=== PATIENT | female | born 1970 | race Caucasian/White ===

== ENCOUNTER 2025-07-16 15:24 | Outpatient (AMB) | payer OTHER, SELFPAY ==
--- OUTSIDE RECORDS SUMMARY | 2024-09-26 08:25 | XMS_ITS ---
Author Organization [facility] Address [address], [place] [id number] Care Team Providers Care Grinding Operator Name Role Phone BAIRON WAGNER Primary Care Provider REASON FOR VISIT fax EKG results Encounters Encounter Location Date Provider Diagnosis [facility] [address] [place] [address] 09/26/2024 BAIRON WAGNER PLAN OF TREATMENT No Information
--- OUTSIDE RECORDS SUMMARY | 2024-09-29 03:57 | XMS_ITS ---
Author Organization [facility] Address [address] [place], [place] [id number] Care Team Providers Care Shade Hanger Name Role Phone BAIRON WAGNER Primary Care Provider REASON FOR VISIT fax EKG tracings Encounters Encounter Location Date Provider Diagnosis [facility] [address] [place] [address] 09/29/2024 BAIRON WAGNER PLAN OF TREATMENT No Information
--- OUTSIDE RECORDS SUMMARY | 2024-09-30 03:40 | XMS_ITS ---
Author Organization [facility] Address [address] [place], [place] [id number] Care Team Providers Care Hospice Clinical Marketer Name Role Phone BAIRON WAGNER Primary Care Provider [phone] REASON FOR VISIT fax EKG tracings ALICE Encounters Encounter Location Date Provider Diagnosis [facility] [address] [place] [address] 09/30/2024 BAIRON WAGNER PLAN OF TREATMENT No Information
--- OUTSIDE RECORDS SUMMARY | 2024-12-09 08:02 | XMS_ITS ---
Author Organization [facility] Address [address] [place], [place] [phone] Care Team Providers Care Farm Planner Name Role Phone BAIRON WAGNER Primary Care Provider CIARA MYLES [phone] REASON FOR VISIT Abdominal Surgery Follow Up Encounters Encounter Location Date Provider Diagnosis [facility] [address] [place] [address] 12/09/2024 CIARA MYLES PLAN OF TREATMENT No Information
--- OUTSIDE RECORDS SUMMARY | 2024-12-11 10:40 | XMS_ITS ---
Author Organization [facility] Address [address] [place], [place] [id number] Care Team Providers Care Miner Operator Name Role Phone BAIRON WAGNER Primary Care Provider CIARA MYLES Unavailable [phone] ALLERGIES Allergen (clinical drug ingredient) Drug/Non Drug Allergy documented on EMR Reaction Allergy Type Onset Date Status metronidazole Flagyl red patches on skin Drug Allergy Active Latex Latex sensitivity Allergy Active tetracycline Tetracycline red patches on skin Drug Allergy Active REASON FOR VISIT KP/36/Abdominal Surgery Follow Up MEDICATIONS Medication SIG (Take, Route, Frequency, Duration) Notes Start Date End Date Status valACYclovir HCl 1 GM 1 tab(s) orally 2 times a day prn Active Simethicone 80 MG 1 tablet after meals and at bedtime as needed Orally Four times a day Active Albuterol Sulfate 90 mcg orally orally 2 puffs every 6 hours Active Atorvastatin Calcium 40 MG 1 tablet Oral ly Once a day Active Acetaminophen 325 MG 1 tablet as needed Orally every 6 hrs Active Ibuprofen 600 MG 1 tablet with food o r milk as needed Orally Three times a day Active Gabapentin 300 MG 1 capsule Orally Thr ee times a day Active PROBLEMS Problem Type ICD Code Onset Dates Problem Status W/U Status Risk SNOMED Code Notes Problem 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 [address] [place] [address] 12/11/2024 CIARA PULITO EIN (endometrial intraepithelial neoplasia) N85.02 ; Pruritic rash L28.2 ; Mild intermittent asthma without complication J45.20 and Pure hypercholesterolemia E78.00 ASSESSMENTS Encounter Date Diagnosis Assessment Notes Treatment Notes Treatment Clinical Notes Section Notes 12/11/2024 EIN (endometrial intraepithelial neoplasia) (ICD-10 - N85.02) S/p uncomplicated abdominal hysterectomy and bilat salpingo-oophorec helga. Pathology pending. Pain controlled, patient agrees to start trying to reduce frequency/dose of Tylenol and Ibuprofen as tolerated. Continue light activity as toelrated, no lifting > 10 pounds and nothing per vagina. Follow up with Dr. Sykes next week as scheduled. 12/11/2024 Pruritic rash (ICD-1 0 - L28.2) Rash inconsistent with cellulitis. Patient will continue wearing T-shirt under her abdominal binder, can apply OTC hydrocortisone 1% cream to rash but not on incision sites. , Pt knows to follow up immediately if symptoms worsen, otherwise will follow up if no improvement. 12/11/2024 Mild intermittent asthma without complication (ICD-10 - J45.20) 12/11/2024 Pure hypercholesterolemia (ICD-10 - E78.00) 12/11/2024 Other I am seeing the patient under the supervision of the co-signing physician. The physician was available for consultation at the time of the office visit. Hospital records reviewed PLAN OF TREATMENT Medication Medication Name Sig Start Date Stop Date Notes valACYclovir HCl 1 GM 1 tab(s) orally 2 times a day prn Simethicone 80 MG 1 tablet after meals and at bedtime as needed Orally Four times a day Albuterol Sulfate 90 mcg orally orally 2 puffs every 6 hours Atorvastatin Calcium 40 MG 1 tablet Orally Once a day Acetaminophen 325 MG 1 tablet as needed Orally every 6 hrs Ibuprofen 600 MG 1 tablet with food o r milk as needed Orally Three times a day Gabapentin 300 MG 1 capsule Orally Thr ee times a day Treatment Notes Assessment Notes EIN (endometrial intraepithelial neoplas ia) S/p uncomplicated abdominal hysterectomy and bilat salpingo-oophorectomy. Pathology pending. Pain controlled, patient agrees to start trying to reduce frequency/dose of Tylenol and Ibuprofen as tolerated. Continue light activity as toelrated, no lifting > 10 pounds and nothing per vagina. Follow up with Dr. Sykes next week as scheduled. Pruritic rash Rash inconsistent wi th cellulitis. Patient will continue wearing T-shirt under her abdominal binder, can apply OTC hydrocortisone 1% cream to rash but not on incision sites. , Pt knows to follow up immediately if symptoms worsen, otherwise will follow up if no improvement. Other I am seeing the william ent under the supervision of the co-signing physician. The physician was available for consultation at the time of the office visit. Hospital records reviewed Next Appt Details Follow Up: prn or as schedul ed, Reason: History and Physical Notes * HPI (History of Present Illness) Category Sub-Category Detail Notes Category Not es General 54 yo female pr esents for HFU. She was admitted to [facility] 12/02-12/04/24 for planned laparoscopic converted to open hysterectomy and bilat salpingo-oophorectomy and sentinal lymph node dissection. with Dr. Addis Figueroa. Post-op course was uncomplicated and patient was discharged home on 12/04/24 with Oxycodone 5 mg po q6hrs, gabapentin 300 mg po tid, Tylenol 1000 mg po qid, and Ibuprofen 600 mg po tid for pain control. Today patient states she took Oxycodone at night initially but no longer needed starting 3 days ago. Pain is controlled on Tylenol 1000 mg po q6 hrs, Ibuprofen 600 mg po q6 hrs, and gabapentin 300 mg tid. Patient is scheduled for a post-op with Dr. Figueroa 12/18/24. She has been able to walk up to 45 minutes and complete ADLs without pain. Physical Examination Category Sub-Category Detail Notes Section Note s EXTREMITIES Edema: none CHEST Shape and expansion: normal Breath sounds: clear to auscultatio n Rales: none Wheezes: none rubs no HEART Rhythm: regular Murmurs: none Heart sounds: Normal S1 & S2, no S 3/S4 Rate: regular ABDOMEN Exam shows: + abdominal bind er, large midline incision and 4 small incisions - clean, dry, intact, abdomen soft, + pink erythema surrounding incision sites, + mild swelling at distal aspect of midline incision, no exudate, no significant tenderness, + erythematous papular rash left mid abdomen NEUROLOGICAL Gait: normal Mental status: Alert and oriented t o person, place, time Tremor: none Speech normal GENERAL General Appearance: well nourish ed, well developed, pleasant, comfortable, no apparent distress PSYCHOLOGY Grooming: appropriate Eye contact: normal Mood: pleasant Affect appropriate
--- OUTSIDE RECORDS SUMMARY | 2025-01-29 03:50 | XMS_ITS ---
Author Organization [facility] Address [address] [place], [place] [id number] Care Team Providers Care Mining Professionals Name Role Phone BAIRON WAGNER Primary Care Provider REASON FOR VISIT rash Appt Encounters Encounter Location Date Provider Diagnosis [facility] [address] [place] [address] 01/29/2025 BAIRON WAGNER PLAN OF TREATMENT No Information
--- OUTSIDE RECORDS SUMMARY | 2025-01-29 05:40 | XMS_ITS ---
Author Organization [facility] Address [address] [place], [place] [phone] Care Team Providers Care Field Seismologist Name Role Phone BAIRON WAGNER Primary Care Provider ALLERGIES Allergen (clinical drug ingredient) Drug/Non Drug Allergy documented on EMR Reaction Allergy Type Onset Date Status metronidazole Flagyl red patches on skin Drug Allergy Active Latex Latex sensitivity Allergy Active tetracycline Tetracycline red patches on skin Drug Allergy Active REASON FOR VISIT Small Red, Raised, Itchy Rash MEDICATIONS Medication SIG (Take, Route, Frequency, Duration) Notes Start Date End Date Status Hydrocortisone 1 % 1 application Rectal Twice a day Active Acetaminophen 325 MG 1 tablet as needed Orally every 6 hrs Active Ibuprofen 600 MG 1 tablet with food o r milk as needed Orally Three times a day Active Atorvastatin Calcium 40 MG 1 tablet Oral ly Once a day Active Medrol 4 MG as directed Orally f or 6 days 01/29/2025 Active Albuterol Sulfate 90 mcg orally orally 2 puffs every 6 hours Active valACYclovir HCl 1 GM 1 tab(s) orally 2 times a day prn Active Clobetasol Propionate 0.05 % 1 applicati on Externally Twice a day for 10 day(s) 01/29/2025 Active SOCIAL HISTORY Tobacco Use: Social History Observation Description Date Details (start date - stop date) Never Smoker NA - NA Sex Assigned At : Social History Observation Description Sex Assigned At Unknown Smoking Question Answer Notes Are you a: never smoker VITAL SIGNS Height 55.50 in 01/29/2025 Weight 192.2 lbs 01/29/2025 Blood pressure systolic 137 mm Hg 01/30/20 25 Blood pressure diastolic 83 mm Hg 025 BMI 43.87 kg/m2 01/29/2025 Encounters Encounter Location Date Provider Diagnosis [facility] [address] [place] [address] 01/29/2025 BAIRON WAGNER Contact dermatitis, unspecified contact dermatitis type, unspecified trigger L25.9 ASSESSMENTS Encounter Date Diagnosis Assessment Notes Treatment Notes Treatment Clinical Notes Section Notes 01/29/2025 Contact dermatitis, unspecified contact dermatitis type, unspecified trigger (ICD-10 - L25.9) discuss elastic products with direct contact to skin; advised to contact me if not resolving wiht above tx We discussed allergy consult and she wants to hold on that PLAN OF TREATMENT Medication Medication Name Sig Start Date Stop Date Notes Medrol 4 MG as directed Orally for 6 days 01/29/2025 Clobetasol Propionate 0.05 % 1 applicati on Externally Twice a day for 10 day(s) 01/29/2025 Treatment Notes Assessment Notes Contact dermatitis, unspecif ied contact dermatitis type, unspecified trigger discuss elastic products with direct contact to skin; advised to contact me if not resolving wiht above tx History and Physical Notes * HPI (History of Present Illness) Category Sub-Category Detail Notes Category Not es General rash states prior hx deramtitis rubber gloves and dish gloves . States new sneakers 20 yrs ago. States after surgery abd binder and wore x 10 days post hosp Started rash in the area. Wore shirt over area and helped. Hydrocort cream tried Wore elastic underwear and area under in abd got red. Stopped the spanks elastic underwear. the redness itching continues. Some itching arms. Physical Examination Category Sub-Category Detail Notes Section Note s ABDOMEN Guarding: none Tenderness: none NEUROLOGICAL Gait: normal Mental status: Alert and oriented t o person, place, time Speech normal DERMATOLOGY Skin: patchy moderate erythema rash mid uper abdomen no increased warmth on skin ( my medical supervisor with me, Brittni) GENERAL General Appearance: well nourish ed, no apparent distress, well developed PSYCHOLOGY Grooming: appropriate Eye contact: normal Mood: pleasant Affect appropriate
--- OUTSIDE RECORDS SUMMARY | 2025-07-13 11:06 | XMS_ITS ---
Author Organization [facility] Address [address] [place], [place] [id number] Care Team Providers Care Lead Assistant Manager Name Role Phone BAIRON WAGNER Primary Care Provider REASON FOR VISIT MedRecReqTrs Encounters Encounter Location Date Provider Diagnosis [facility] [address] [place] [address] 07/13/2025 BAIRON WAGNER PLAN OF TREATMENT No Information
--- OUTSIDE RECORDS SUMMARY | 2025-07-14 04:07 | XMS_ITS ---
Author Organization [facility] Address [address] [place], [place] [phone] Care Team Providers Care Assistant Front Office Manager Name Role Phone BAIRON WAGNER Primary Care Provider REASON FOR VISIT MedRecReqPt Encounters Encounter Location Date Provider Diagnosis [facility] [address] [place] [address] 07/14/2025 BAIRON WAGNER PLAN OF TREATMENT No Information
--- OUTSIDE RECORDS SUMMARY | 2025-07-14 05:04 | XMS_ITS ---
Author Organization [facility] Address [address] [place], [place] [phone] Care Team Providers Care Drier Name Role Phone BAIRON WAGNER Primary Care Provider [phone] ALLERGIES Allergen (clinical drug ingredient) Drug/Non Drug Allergy documented on EMR Reaction Allergy Type Onset Date Status metronidazole Flagyl red patches on skin Drug Allergy Active Latex Latex sensitivity Allergy Active tetracycline Tetracycline red patches on skin Drug Allergy Active REASON FOR VISIT 2/ valACYclovir refill MEDICATIONS Medication SIG (Take, Route, Frequency, Duration) Notes Start Date End Date Status valACYclovir HCl 1 GM 1 tab(s) orally tw ice a day x 1 wk , repeat if needed for 14 days Active Atorvastatin Calcium 40 MG TAKE 1 TABLET BY MOUTH EVERY DAY for 90 Active Medrol 4 MG as directed Orally f or 6 days 01/29/2025 Active Acetaminophen 325 MG 1 tablet as needed Orally every 6 hrs Active Hydrocortisone 1 % 1 application Rectal Twice a day Active Clobetasol Propionate 0.05 % 1 applicati on Externally Twice a day for 10 day(s) 01/29/2025 Active Albuterol Sulfate 90 mcg orally orally 2 puffs every 6 hours Active Ibuprofen 600 MG 1 tablet with food o r milk as needed Orally Three times a day Active PROBLEMS Problem Type ICD Code Onset Dates Problem Status W/U Status Risk SNOMED Code Notes Problem 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 Herpes simplex otitis externa ([id number]) Encounters Encounter Location Date Provider Diagnosis [facility] [address] [place] [address] 07/14/2025 BAIRON WAGNER Recurrent vesicular dermatitis due to herpes simplex virus (HSV) B00.1 ASSESSMENTS Encounter Date Diagnosis Assessment Notes Treatment Notes Treatment Clinical Notes Section Notes 07/14/2025 Recurrent vesicular dermatitis due to herpes simplex virus (HSV) (ICD-10 - B00.1) PLAN OF TREATMENT Medication Medication Name Sig Start Date Stop Date Notes valACYclovir HCl 1 GM 1 tab(s) orally tw ice a day x 1 wk , repeat if needed for 14 days
--- NOTE | 2025-07-16 15:30 | A.OFFPC_ITS ---
Vital Signs 07/16/25 15:43 Height 5 ft 6 in Weight 190 lb 6 oz BMI 30.7 BP 116/70 Blood Pressure Location Lt brachial Position Sitting Respiration 15 Pulse 90 Pulse Source Pulse Oximeter Temp 97.8 F Temp Source Temporal Artery Scan Pulse Oximetry (%) 96 Oxygen Delivery Method Room Air Intake Visit Reasons: Est. Care / Referral Intake Note: Geni presents in the office today to establish care. Allergies cat dander (cats) Allergy (Verified 07/16/25 15:37) Rash metronidazole (From Flagyl) Allergy (Verified 07/16/25 15:36) Rash tetracycline Allergy (Verified 07/16/25 15:36) Rash wool Allergy (Verified 07/16/25 15:37) Shortness of Breath latex Adverse Reaction (Intermediate, Verified 07/16/25 15:36) Rash Medication List - Last Reconciled 07/17/25 by FAYE Lyons albuterol sulfate 90 mcg/actuation 2 inhalations inhalation .every 4 hours PRN 30 days atorvastatin (Lipitor) 10 mg PO DAILY calcium carbonate 260 mg PO DAILY cholecalciferol (vitamin D3) 10 mcg PO DAILY vitamin B73-bajuf acid 500-400 mcg 1 tab PO DAILY Tobacco use date assessed: 07/16/25 Dental Screening Dental Screen Date: 07/16/25 Did you have a dental visit in the last 12 months?: Yes Did you have a dental problem in the last 6 months where you did not have access to dental care?: No Was dental information given to patient?: Patient has dentist HPI HPI Comments History of Present Illness Details This is a 55-year-old female with a past medical history of hyperlipidemia presenting to establish care. Her name is alvaro Cancino. Her last physical exam was September of 2024. Hyperlipidemia-Taking Atorvastatin 20 mg daily. She needs a referral to her animal ecologist in [facility]. She goes for skin exams. She has no personal history of skin cancer, but her mother did have skin cancer. She had a normal colonoscopy on 01/04/2021, and it was recommended to repeat this in 10 years. She is going to call [facility] to schedule her mammogram, and she needs the order sent there. 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 Benedict Enrique. s/p hysterectomy November 2024 for precancerous cells and bleeding. No postoperative complications. 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 Currently taking this for and outbreak. She has a history of asthma that is usually allergy induced. She has not required an inhaler for years, but she would like to have 1 on hand in the event of symptoms. Patient was seen by Dr. Balderas for right Achilles tendonitis and treated with physical therapy. It resolved, but the left Achilles tendon has been bothering her now for the last couple of months. She is still walking which is the primary form of exercise, and she does want to lose weight. She would like to go back to physical therapy because she does not want this to get worse. ROS: Constitutional: No fevers or chills Respiratory: No shortness of breath Cardiovascular: No chest pain Musculoskeletal: See HPI Psychiatric: No depression or anxiety. No SI/HI. Physical exam: Constitutional: Alert, in no distress. Neck: Supple, Full range of motion. No lymphadenopathy. No palpable thyroid masses. Respiratory: Clear to auscultation. Cardiovascular: S1 S2 regular. No murmurs. Skin: Mild, erythematous, vesicular rash on the left nares. Musculoskeletal: Swelling and tenderness at the insertion of the left Achilles tendon. No redness or calor. Psychiatric: Normal mood and affect [facility] Medical History (Updated 07/17/25 @ 10:30 by FAYE Lyons) Mild intermittent asthma in adult without complication HSV (herpes simplex virus) infection Left Achilles tendinitis H/O mammogram Achilles tendinitis Hyperlipemia Asthma Surgical History (Updated 07/17/25 @ 10:29 by FAYE Lyons) H/O: hysterectomy H/O colonoscopy Family History (Updated 07/16/25 @ 15:43 by Addis Butcher CMA) Father Hypertension Hyperlipemia Bladder cancer Glioblastoma Mother Hyperlipemia Mantle cell lymphoma Social History (Updated 07/16/25 @ 15:43 by Addis Butcher CMA) Housing: House Alcohol intake: current Patient Tobacco Use Status: Never used Tobacco e-Cigarette/Vaping Use: Never Used Second Hand Smoke Exposure: No service: No Current occupational status: employed 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 1. Little interest or pleasure in doing things: not at all 2. Feeling down, depressed, or hopeless: not at all 3. Trouble falling or staying asleep, or sleeping too much: not at all 4. Feeling tired or having little energy: not at all 5. Poor appetite or overeating: not at all 6. Feeling bad about yourself - or that you are a failure or have let yourself or your family down: not at all 7. Trouble concentrating on things, such as reading the newspaper or watching television: not at all 8. Moving or speaking so slowly that other people could have noticed. Or the opposite - being so fidgety or restless that you have been moving around a lot more than usual: not at all 9. Thoughts that you would be better off or of hurting yourself in some way: not at all Total score: 0 Depression Screening Interpretation: Negative Depression Screening Done: Yes 04794 - PHQ-9 Billing: Yes Source: Developed by Drs. Joshua Beck, Claudia Arriaga, Trip Huggins and colleagues, with an educational negrito from [employer]. Thrive Questionnaire Date Thrive assessed: 07/16/25 I am a: Patient What is your living situation today?: I have a steady place to live Within the past 12 months, did the food you bought not last and you didn't have the money to get more?: Never true Within the past 12 months, did you worry whether your food would run out before you got money to buy more?: Never true Do you have trouble paying for medicines?: No Do you have trouble getting transportation to medical appointments?: No Do you have trouble paying your heating and electricity bill?: No Do you have trouble taking care of your child, family member or friend?: No Do you have trouble with day-to-day activities such as bathing, preparing meals, shopping, managing finances, etc.?: No Are you currently unemployed and looking for a job?: No Are you interested in more education?: No Please select the resources that you would like help with: None Currently or been in a relationship where the following occur: No concerns reported THRIVE Score: 0 AUDIT C Alcohol Use Questionnaire (AUDIT-C) 1. How often do you have a drink containing alcohol?: 2-4 times a month 2. How many drinks containing alcohol do you have on a typical day when you are drinking?: 1 or 2 3. How often do you have six or more drinks on one occasion?: Never Total Score: 2 WILEY-7 AMB Questionnaire WILEY-7 Date WILEY - 7 assessed: 07/16/25 Feeling nervous, anxious, or on edge: 0 = Not at all Not being able to stop or control worryin = Not at all Worrying too much about different things: 0 = Not at all Trouble relaxin = Not at all Being so restless that it is hard to sit still: 0 = Not at all Becoming easily annoyed or irritable: 0 = Not at all Feeling afraid as if something awful might happen: 0 = Not at all Total WILEY-7 score (0-4 normal; 5-9 mild; 10-14 moderate; 15-21 severe): 0 Source: Developed by Drs. Joshua Beck, Claudia Arriaga, Trip Huggins and colleagues, with an educational negrito from [employer]. WILEY-7 Assessment Billing WILEY-7 Assessment Tool: WILEY-7 Assessment 28306 Physical exam (Primary Care) Vital Signs: Last Vital Signs Temp 97.8 F 07/16/25 15:43 Pulse 90 07/16/25 15:43 Resp 15 07/16/25 15:43 BP 116/70 07/16/25 15:43 Pulse Ox 96 07/16/25 15:43 Oxygen Delivery Method Room Air 07/16/25 15:43 BMI result Body Mass Index 30.7 Tobacco/Smoking Status: Tobacco use Status Tobacco use date assessed 07/16/25 07/16/25 15:46 Patient Tobacco Use Status Never used Tobacco 07/16/25 15:46 e-Cigarette/Vaping Use Never Used 07/16/25 15:46 PHQ-9: PHQ-9 Score PHQ-9: Total score 0 07/17/25 10:26 Depression Screening Interpretation: Negative Thrive Assessment: Date of Thrive Assessment Date Thrive assessed 07/16/25 07/16/25 15:31 Currently or been in a relationship where the following occur: No concerns reported Coding Level of Care Code New Pt Level 4 (35054) Complex EM visit Add On G2211 Diagnoses Left Achilles tendinitis M76.62 Pure hypercholesterolemia E78.00 Hyperlipidemia type: pure hypercholesterolemia HSV (herpes simplex virus) infection B00.9 Mild intermittent asthma in adult without complication J45.20 Additional Codes WILEY-7 Assessment Billing - WILEY-7 Assessment Tool: WILEY-7 Assessment 95562 ([id number]) PHQ-9 - 23664 - PHQ-9 Billing: Yes ([id number]) Assessment & Plan Assessment & Plan (1) Left Achilles tendinitis: Code(s): M76.62 - Achilles tendinitis, left leg Category: Medical Plan: Conservative measures reviewed. Referred to physical therapy. (2) Hyperlipemia: Code(s): E78.5 - Hyperlipidemia, unspecified Category: Medical Qualifiers: Hyperlipidemia type: pure hypercholesterolemia Qualified Code(s): E78.00 - Pure hypercholesterolemia, unspecified Plan: Continue efforts at weight loss. Continue atorvastatin 10 mg daily. Check labs prior to physical exam. (3) HSV (herpes simplex virus) infection: Comment: infrequent outbreaks on nose Code(s): B00.9 - Herpesviral infection, unspecified Category: Medical Plan: Valtrex as needed. (4) Mild intermittent asthma in adult without complication: Code(s): J45.20 - Mild intermittent asthma, uncomplicated Category: Medical Plan: Albuterol 2 puffs every 4 hours as needed for coughing, wheezing or shortness of breath. She endorses environmental triggers. She can take Zyrtec 10 mg 1 hour prior to exposure and albuterol 2 puffs 15 minutes prior to exposure. Plan Follow up for a physical exam in about 3 months. Orders: Orders Comprehensive Met. Panel 07/16/25 E78.5 - Hyperlipidemia, unspecified Complete Blood Count no Diff 07/16/25 E78.5 - Hyperlipidemia, unspecified Lipid Panel 07/16/25 E78.5 - Hyperlipidemia, unspecified PT Evaluation and Treatment 07/16/25 M76.62 - Achilles tendinitis, left leg Influenza [id number] Immunization 07/16/25 Z23 - Encounter for immunization Vitamin D 25-OH (D2 and D3) 07/16/25 E78.5 - Hyperlipidemia, unspecified MM screening mammo BI Today Z12.31 - Encounter for screening mammogram for malignant neoplasm of breast Referrals Dermatology Referral Z12.83 - Encounter for screening for malignant neoplasm of skin Medications: New albuterol sulfate 90 mcg/actuation 2 inhalations inhalation .every 4 hours PRN 8.5 grams 0RF shortness of breath or wheezing 30 days Fluarix 2425-6479 (PF) (flu vac ts 2024-(6mos up)-PF) 0.5 mL IM ONCE 0.5 mL 0RF NS Z23 - Encounter for immunization
[2025-07-16 15:43] VITALS: BP 116/70; PULSE 90; RESP 15; TEMP 36.6; O2SAT 96; BMI 30.7
--- OUTSIDE RECORDS SUMMARY | 2025-07-16 18:19 | XMS_ITS | Encounter Summary ---
Author Organization [facility] Address [address] [place] [address] Care Team Providers Care Sheet Fed Printer Name Role Phone Jaxson Tian DO Primary Care Provider [phone] Addis Figueroa MD Unavailable Benedict Enrique MD Unavailable [phone] Encounter Details Date Type Department Care Team (Late st Contact Info) Description 10/10/2024 Scanned Document [facility] Division of Gynecologic Oncology in [address] [phone] [address] Social History Tobacco Use Types Packs/Day Years Used Date Smoking Tobacco: Never Smokeless Tobacco: Never Alcohol Use Standard Drinks/Week Comments Yes 1 (1 standard drink = 0.6 oz pur e alcohol) AUDIT-C Answer Date Recorded Q1: How often do you have a drink containing alc ohol? 2-4 times a month 09/22/2024 Q2: How many drinks containi ng alcohol do you have on a typical day when you are drinking? 1 or 2 09/22/2024 Q3: How often do you have si x or more drinks on one occasion? Never 09/22/2024 Comments Unknown Sex and Gender Information Value Date Recorded Sex Assigned at Female 10/01/2024 6:12 AM EST Legal Sex Female 4:47 PM EDT Gender Identity Female 12/02/2024 9:08 AM EDT Sexual Orientation Heterosexual (straight) 03/25 /2025 9:08 AM EDT documented as of this encounter Plan of Treatment Not on file documented as of this encounter Visit Diagnoses Not on filedocumented in this encounter Care Teams Sheet Fed Printer Relationship Specialty Start Date End Date Jaxson Tian DO [address] [place] [address] PCP - General Internal Medicine 10/01/24 Addis Figueroa MD [address] [facility] [address] [place] [address] Physician Gynecology Oncology 10/30/24 Benedict Enrique MD [address] [place] [address] Obstetrics and Gynecology 10/30/24 documented as of this encounter
--- OUTSIDE RECORDS SUMMARY | 2025-07-16 18:19 | XMS_ITS | Encounter Summary ---
Author Organization [facility] Address [address] [place] [address] Care Team Providers Care Quality Improvement Consultant Name Role Phone Jaxson Tian DO Primary Care Provider [phone] Addis Figueroa MD Unavailable Benedict Enrique MD Unavailable [phone] Encounter Details Date Type Department Care Team (Late st Contact Info) Description 11/07/2024 Scanned Document [facility] Division of Gynecologic Oncology in [address] [phone] Addis Figueroa MD [address] [address] Social History Tobacco Use Types [...] 9:08 AM EDT Sexual Orientation Heterosexual (straight) 12/02 9:08 AM EDT documented as of this encounter Plan of Treatment Not on file documented as of this encounter Visit Diagnoses Not on filedocumented in this encounter Care Teams Quality Improvement Consultant Relationship Specialty Start Date End Date Jaxson Tian DO [address] [place] [id number] PCP - General Internal Medicine 10/01/24 Addis Figueroa MD [address] [facility] [address] [place] [address] Physician Gynecology Oncology 10/30/24 Benedict Enrique MD [address] [place] [address] Obstetrics and Gynecology 10/30/24 documented as of this encounter
--- OUTSIDE RECORDS SUMMARY | 2025-07-16 18:19 | XMS_ITS | Clinical Summary ---
Author Organization [facility] Address [address] [place] [address] Care Team Providers Care Remote Medical Coder Name Role Phone Unavailable Primary Care Provider Unavailabl e Allergies Active Allergy Reactions Criticality Noted Date Comments Amoxicillin 12/08/2020 Metronidazole 12/08/2020 Latex Low 12/08/2020 Medications No known medications Social History Tobacco Use Types Packs/Day Years Used Date Smoking Tobacco: Never Assessed Sex and Gender Information Value Date Recorded Sex Assigned at Female 08/01/2020 6:38 PM EST Gender Identity Not on file Sexual Orientation Not on file Job Start Date Occupation Industry Not on file Not on file Not on file Plan of Treatment Health Maintenance Due Date Last Done Comments Hepatitis B Vaccines (1 of 3 - 3-dose series) 1969 Hepatitis C Screening 1969 COVID-19 Vaccine (#1) 1969 Depression Screening 1981 Preventative Health Evaluation 1987 DTap / Tdap / Td (1 - Tdap) 1988 Cervical Cancer Screening (P ap Smear) 1990 Colon Cancer Screening (Colonoscopy) 2014 Breast Cancer Screening (Mammogram) 2019 Shingrix-Zoster Vaccine (1 of 2) 2019 Influenza Vaccine (#1) 2025 Pneumococcal Vaccine Aged Out No long er eligible based on patient's age to complete this topic RSV Ped < 20 months Aged Out No longe r eligible based on patient's age to complete this topic
--- OUTSIDE RECORDS SUMMARY | 2025-07-16 18:19 | XMS_ITS | Encounter Summary ---
Author Organization [facility] Address [address] [place] [address] Care Team Providers Care Lead Java J2Ee Developer Name Role Phone Jaxson Tian DO Primary Care Provider [phone] Addis Figueroa MD Unavailable Benedict Enrique MD Unavailable [phone] Encounter Details Date Type Department Care Team (Late st Contact Info) Description 10/10/2024 Scanned Document [facility] Division of Gynecologic Oncology in [address] [phone] [address] Social History Tobacco Use Types [...] on filedocumented in this encounter Care Teams Lead Java J2Ee Developer Relationship Specialty Start Date End Date Jaxson Tian DO [address] [place] [address] PCP - General Internal Medicine 10/01/24 Addis Figueroa MD [address] [facility] [address] [place] [address] Physician Gynecology Oncology 10/30/24 Benedict Enrique MD [address] [place] [address] Obstetrics and Gynecology 10/30/24 documented as of this encounter
--- OUTSIDE RECORDS SUMMARY | 2025-07-16 18:19 | XMS_ITS | Encounter Summary ---
Author Organization [facility] Address [address] [place] [address] Care Team Providers Care Tile Inspector Name Role Phone Jaxson Tian DO Primary Care Provider [phone] Addis Figueroa MD Unavailable Benedict Enrique MD Unavailable [phone] Encounter Details Date Type Department Care Team (Late st Contact Info) Description 11/07/2024 Scanned Document [facility] Division of Gynecologic Oncology in [address] [phone] [address] Social History Tobacco Use Types [...] on filedocumented in this encounter Care Teams Tile Inspector Relationship Specialty Start Date End Date Jaxson Tian DO [address] [place] [address] PCP - General Internal Medicine 10/01/24 Addis Figueroa MD [address] [facility] [address] [place] [address] Physician Gynecology Oncology 10/30/24 Benedict Enrique MD [address] [place] [address] Obstetrics and Gynecology 10/30/24 documented as of this encounter
--- OUTSIDE RECORDS SUMMARY | 2025-07-16 18:19 | XMS_ITS | Encounter Summary ---
Author Organization [facility] Address [address] [id number] Care Team Providers Care Surgery Tech Name Role Phone Pcp, No Primary Care Provider UnavailJaxson Martin DO Primary Care Provider Addis Figueroa MD Unavailable Benedict Enrique MD Unavailable [phone] Encounter Details Date Type Department Care Team (Late st Contact Info) Description 09/30/2024 Prep for Surgery OBGYN IP [address] [place] [address] Benedict Enrique MD [address] [place] [address] Social History Tobacco Use Types Packs/Day Years [...] AM EDT documented as of this encounter H&P Notes * Benedict Enrique MD - 09/30/2024 8:12 AM EST 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 Patient has been using hormone replacement therapy but has had intermittent bleeding. Most recent ultrasound shows; Ultrasound shows endometrial thickness 7.6 mm and a 15 mm endometrial mass most likely an endometrial polyp. There is also an84 x 85 x 96 mm lower uterine segment leiomyoma. Adnexal areas are negative. Options for intervention discussed. Patient wishes to proceed with hysteroscopy, endometrial polypectomy and D&C. Risks of anesthesia, bleeding, infection, perforation of uterus with damage to adjacent organs including bowel, bladder, ureters, blood vessels, deep venous thrombosis, transfusion,further surgery discussed. Patient wishes to proceed. Consent form done. Plan Hysteroscopy, polypectomy d&c Subjective Chief Complaint Patient complains of: PMB, endometrial mass History of Present Illness 54-year-old -0-1-2 on hormone replacement therapy here for preoperative consultation prior to planned hysteroscopy, endometrial polypectomy and D&C. Patient has been using hormone replacement therapy but has had intermittent bleeding. Most recent ultrasound shows; Ultrasound shows endometrial thickness 7.6 mm and a 15 mm endometrial mass most likely an endometrial polyp. There is also an84 x 85 x 96 mm lower uterine segment leiomyoma. Adnexal areas are negative. Options for intervention discussed. Patient wishes to proceed with hysteroscopy, endometrial polypectomy and D&C. Risks of anesthesia, bleeding, infection, perforation of uterus with damage to adjacent organs including bowel, bladder, ureters, blood vessels, deep venous thrombosis, transfusion,further surgery discussed. Patient wishes to proceed. Consent form done. Review of Systems Review of Systems Constitutional: Negative. HENT: Negative. Respiratory: Negative. Cardiovascular: Negative. Gastrointestinal: Negative. Endocrine: Negative. Genitourinary: Positive for menstrual problem and vaginal bleeding. Musculoskeletal: Negative. Allergic/Immunologic: Negative. Neurological: Negative. Hematological: Negative. Psychiatric/Behavioral: Negative. Objective Active Problems: * No active hospital problems. * Resolved Problems: Past History OB History OB History Total: 3 Full term: 2 Abortions spontaneous: 1 Livin Last modified by [id number], 15:38 Past Pregnancies None recorded 2 vaginal delivered Last modified by [id number], 15:38 Past Medical History: Diagnosis Date Endometriosis Hand(s) except finger(s) alone, insect bite, nonvenomous, without mention of infection(914.4) Nonvenomous insect bite of hand: 2014-01-02 10:50:14 Herpes simplex without mention of complication HSV infection: 2013-12-09 15:41:22 Hyperlipidemia Past Surgical History: Procedure Laterality Date COLONOSCOPY WA CONIZATION CERVIX W/WO D&C RPR ELTRD EXC Cervical Loop Electrosurgical Excision (LEEP): 2014-01-02 10:47:05 [place] INCOMPLETE ANY TRIMESTER SURGICAL Surgical Treatment Of Spontaneous : 2014-01-02 12:46:56 No family history on file. 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 proGESTerone micronized 100 mg capsule Take 1 capsule every day by oral route for 90 days. Physical Exam Physical Exam Vitals reviewed. Constitutional: Appearance: Normal appearance. Comments: BP: 110/62 sitting 09/18/2024 10:14 am Ht: 5 ft 6 in 09/18/2024 10:10 am Wt: 195 lbs Withclothes 09/18/2024 10:13 am BMI: 31.5 09/18/2024 10:13 am HENT: Head: Normocephalic. Nose: Nose normal. Mouth/Throat: Mouth: Mucous membranes are moist. Eyes: Extraocular Movements: Extraocular movements intact. Pupils: Pupils are equal, round, and reactive to light. Cardiovascular: Rate and Rhythm: Normal rate and regular rhythm. Pulses: Normal pulses. Heart sounds: Normal heart sounds. Pulmonary: Effort: Pulmonary effort is normal. Breath sounds: Normal breath sounds. Abdominal: General: Abdomen is flat. Bowel sounds are normal. Palpations: Abdomen is soft. Genitourinary: General: Normal vulva. Comments: Vulva, vagina cervix normal Uterus with 8-9 cm intrauterine mass c/w fibroid No adnexal masses palpated. Ultrasound shows: Ultrasound shows endometrial thickness 7.6 mm and a 15 mm endometrial mass most likely an endometrial polyp. There is also an 84 x 85 x 96 mm lower uterine segment leiomyoma. Adnexal areas are negative. Musculoskeletal: General: Normal range of motion. Cervical back: Normal range of motion and neck supple. Skin: General: Skin is warm and dry. Capillary Refill: Capillary refill takes less than 2 seconds. Neurological: General: No focal deficit present. Mental Status: She is alert and oriented to person, place, and time. Psychiatric: Mood and Affect: Mood normal. Behavior: Behavior normal. Thought Content: Thought content normal. Judgment: Judgment normal. Vaginal Bleeding:Yes, moderate Relevant data reviewed Labs Notable labs are: Lab Results Component Value Date WBC 7.5 07/04/2021 HGB 13.9 07/04/2021 HCT 44.4 07/04/2021 PLT 426 07/04/2021 Lab Results Component Value Date ABORH O POSITIVE 09/18/2024 No results found for: NA , K , CL , CO2 , BUN , CREAT , GLUC No results found for: CALCIUM , MG , PHOS No results found for: AST , ALT , ALKPHOS , BILITOT , BILIDIR , ALBUMIN , PROT Imaging Studies Ultrasound Interpreted by me and findings are Ultrasound shows endometrial thickness 7.6 mm and a 15 mm endometrial mass most likely an endometrial polyp. There is also an 84 x 85 x 96 mm lower uterine segment leiomyoma. Adnexal areas are negative. Benedict Enrique MD 09/30/2024 8:12 AM documented in this encounter Plan of Treatment Not on file documented as of this encounter Visit Diagnoses Not on filedocumented in this encounter Care Teams Surgery Tech Relationship Specialty Start Date End Date Pcp, No [address] [place] [address] PCP - General 10/10/18 09/30/24 Jasxon Tian DO [address] [place] [address] PCP - General Internal Medicine 10/01/24 Addis Figueroa MD [address] [facility] [address] [place] [address] Physician Gynecology Oncology 10/30/24 Benedict Enrique MD [address] [place] [address] Obstetrics and Gynecology 10/30/24 documented as of this encounter
--- OUTSIDE RECORDS SUMMARY | 2025-07-16 18:20 | XMS_ITS | Encounter Summary ---
Author Organization [facility] Address [address] [place] [address] Care Team Providers Care Cooper Helper Name Role Phone Jaxson Tian DO Primary Care Provider [phone] Addis Figueroa MD Unavailable Benedict Enrique MD Unavailable [phone] Encounter Details Date Type Department Care Team (Late st Contact Info) Description 12/19/2024 Scanned Document Sr. Manager Marketing Oncology [address] [facility] 2 [place] [address] Mary Fernandez ID [address] [place] [address] Social History Tobacco Use Types Packs/Day Years Used Date Smoking Tobacco: Never Smokeless Tobacco: Never Alcohol Use Standard Drinks/Week Comments Yes 1 (1 standard drink = 0.6 oz pur e alcohol) [facility] Utilities Answer Date Recorded In the past 12 months has [employer], gas, oil, or water [employer] threatened to shut off services in your home? No 12/03/2024 AUDIT-C Answer Date Recorded Q1: How often do you have a drink containing alc ohol? 2-4 times a month 12/02/2024 Q2: How many drinks containi ng alcohol do you have on a typical day when you are drinking? 1 or 2 12/02/2024 Q3: How often do you have si x or more drinks on one occasion? Never 12/02/2024 Hunger Vital Sign Answer Date Recorded Within the past 12 months, y ou worried that your food would run out before you got the money to buy more. Never true 12/04/19 25 Within the past 12 months, t he food you bought just didn't last and you didn't have money to get more. Never true 12/03/2024 PRAPARE - Transportation Answer Date Re corded In the past 12 months, has l ack of transportation kept you from medical appointments or from getting medications? No 11/09 In the past 12 months, has l ack of transportation kept you from meetings, work, or from getting things needed for daily living? No 12/03/2024 Housing Stability Vital Sign Answer Tono e Recorded In the last 12 months, was t here a time when you were not able to pay the mortgage or rent on time? No 12/03/2024 In the past 12 months, how m any times have you moved where you were living? 1 12/03/2024 At any time in the past 12 m [facility], were you homeless or living in a residential (including now)? No 12/03/2024 Comments Unknown Sex and Gender Information Value [...] on filedocumented in this encounter Care Teams Cooper Helper Relationship Specialty Start Date End Date Jaxson Tian DO [address] [place] [id number] PCP - General Internal Medicine 10/01/24 Addis Figueroa MD [address] [facility] [address] [place] [address] Physician Gynecology Oncology 10/30/24 Benedict Enrique MD [address] [place] [address] Obstetrics and Gynecology 10/30/24 documented as of this encounter
--- OUTSIDE RECORDS SUMMARY | 2025-07-16 18:20 | XMS_ITS | Encounter Summary ---
Author Organization [facility] Address [address] [place] [address] Care Team Providers Care Seafood Team Member Name Role Phone Jaxson Tian DO Primary Care Provider [phone] Addis Figueroa MD Unavailable Benedict Enrique MD Unavailable [phone] Encounter Details Date Type Department Care Team (Late st Contact Info) Description 12/22/2024 Scanned Document [facility] Division of Gynecologic Oncology in [address] [phone] Addis Figueroa MD [address] [address] Social History Tobacco Use Types Packs/Day Years Used Date Smoking Tobacco: Never Smokeless Tobacco: Never Alcohol Use Standard Drinks/Week Comments Yes 1 (1 standard drink = 0.6 oz pur e alcohol) [facility] Utilities Answer Date Recorded In the past 12 months has [employer], [employer], oil, or water [employer] threatened to shut off services in your [...] money to buy more. Never true 12/04/19 Within the past 12 months, t he [...] any time in the past 12 m ont, were you homeless or living in a long-term (including now)? No 12/03/2024 Comments Unknown Sex [...] on filedocumented in this encounter Care Teams Seafood Team Member Relationship Specialty Start Date End Date Jaxson Tian DO [address] [place], [place] [phone] PCP - General Internal Medicine 10/01/24 Addis Figueroa MD [address] [facility] [address] [place] [address] Physician Gynecology Oncology 10/30/24 Benedict Enrique MD [address] [place] [address] Obstetrics and Gynecology 10/30/24 documented as of this encounter
--- OUTSIDE RECORDS SUMMARY | 2025-07-16 18:20 | XMS_ITS | Encounter Summary ---
Author Organization [facility] Address [address] [place] [address] Care Team Providers Care Slip Dumper Name Role Phone Jaxson Tian DO Primary Care Provider [phone] Addis Figueroa MD Unavailable Benedict Enrique MD Unavailable [phone] Encounter Details Date Type Department Care Team (Late st Contact Info) Description 12/18/2024 Scanned Document [facility] Division of Gynecologic Oncology in [address] [address] Addis Figueroa MD 85 [facility] [address] [place] [address] Social History Tobacco Use Types Packs/Day Years Used Date Smoking Tobacco: Never Smokeless Tobacco: Never Alcohol Use Standard Drinks/Week Comments Yes 1 (1 standard drink = 0.6 oz pur e alcohol) [facility] Utilities Answer Date Recorded In the past 12 months has [employer], [employer], oil, or water [employer] threatened to shut off services in your [...] were you homeless or living in a penitentiary (including now)? No 12/03/2024 Comments Unknown Sex [...] on filedocumented in this encounter Care Teams Slip Dumper Relationship Specialty Start Date End Date Jaxson Tian DO [address] [place], [place] [phone] PCP - General Internal Medicine 10/01/24 Addis Figueroa MD 85 [facility] [address] [place] [address] Physician Gynecology Oncology 10/30/24 Benedict Enrique MD [address] [place] [address] Obstetrics and Gynecology 10/30/24 documented as of this encounter
--- OUTSIDE RECORDS SUMMARY | 2025-07-16 18:20 | XMS_ITS | Patient Health Record ---
Author Organization [facility] Address [address] [place], [place] [id number] Care Team Providers Care Vice President Regulatory Name Role Phone BAIRON WAGNER Primary Care Provider CIARA MYLES Unavailable [phone] ALLERGIES Allergen (clinical drug ingredient) Drug/Non Drug Allergy documented on EMR Reaction Allergy Type Onset Date Status metronidazole Flagyl red patches on skin Drug Allergy Active Latex Latex sensitivity Allergy Active tetracycline Tetracycline red patches on skin Drug Allergy Active REASON FOR REFERRAL No Information MEDICATIONS Medication SIG (Take, Route, Frequency, Duration) Notes Start Date End Date Status valACYclovir HCl 1 GM 1 tab(s) orally tw ice a day x 1 wk , repeat if needed for 14 days Active Atorvastatin Calcium 40 MG TAKE 1 TABLET BY MOUTH EVERY DAY for 90 Active Medrol 4 MG as directed Orally f or 6 days 01/29/2025 Active Clobetasol Propionate 0.05 % 1 applicati on Externally Twice a day for 10 day(s) 01/29/2025 Active Acetaminophen 325 MG 1 tablet as needed Orally every 6 hrs Active Hydrocortisone 1 % 1 application Rectal Twice a day Active Albuterol Sulfate 90 mcg orally orally 2 puffs every 6 hours Active Ibuprofen 600 MG 1 tablet with food o r milk as needed Orally Three times a day Active IMMUNIZATIONS Vaccine Route Administration Date Status Comme nts Influenza, Flublok IM Intramuscular 06/17/2020 Administere d Moderna COVID-19 mRNA LNP-S PF IM Intramuscular 01/21/2022 Administered Tdap (Adacel) IM Intramuscular 06/15/2020 Administered SOCIAL HISTORY Tobacco Use: Social History Observation Description Date Details (start date - stop date) Never Smoker NA - NA Sex Assigned At : Social History Observation Description Sex Assigned At Unknown Smoking Question Answer Notes Are you a: never smoker PROBLEMS Problem Type ICD Code Onset Dates Problem Status W/U Status Risk SNOMED Code Notes Problem Mild intermittent asthma without complication (J45.20) Active confirmed 412614270 Problem Pure hypercholesterolemia (E78.00) Active confirmed 508025942 Problem Moderate mixed hyperlipidemia not requiring statin therapy (E78.2) Active confirmed 395388311 Problem 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 Herpes simplex otitis externa (965572578) Problem Wart of perineum (A63.0) Active confirmed 977906548 Problem EIN (endometrial intraepithelial neoplasia) (N85.02) Active confirmed 914658508 VITAL SIGNS Blood pressure diastolic 83 mm Hg 01/29/2025 Height 55.50 in 01/29/2025 Blood pressure systolic 137 mm Hg 01/29/2025 Weight 192.2 lbs 01/29/2025 BMI 43.87 kg/m2 01/29/2025 Encounters Encounter Location Date Provider Diagnosis [address] [address] 08/21/2024 BAIRON WAGNER [place] [id number]/16/2024 BAIRON WAGNER Pre-op evaluation Z0 1.818 and Annual physical exam Z00.[address] [address] 09/16/2024 BAIRON WAGNER [address] [address] 09/18/2024 BAIRON WAGNER [facility] [address] [address] 09/23/2024 BAIRON WAGNER [address] [address] 09/24/2024 BAIRON WAGNER [facility] [address] [address] 09/25/2024 BAIRON WAGNER [facility] [address] [address] 09/26/2024 BAIRON WAGNER [address] [address] 09/29/2024 BAIRON WAGNER [address] [address] 09/30/2024 BAIRON WAGNER [address] [address] 12/09/2024 CIARA PULITO [address] [address] 12/11/2024 [employer] EIN (endometrial intraepithelial neoplasia) N85.02 ; Pruritic rash L28.2 ; Mild intermittent asthma without complication J45.20 and Pure hypercholesterolemia E78.[address] [address] 01/29/2025 BAIRON WAGNER [place] [phone] 01/29/2025 BAIRON WAGNER Contact dermatitis, unspecified contact dermatitis type, unspecified trigger L25.9 [place] [phone] 07/13/2025 BAIRON WAGNER [address] [address] 07/14/2025 BAIRON WAGNER [place] [phone] 07/14/2025 BAIRON WAGNER Recurrent vesicular dermatitis due to herpes simplex virus (HSV) B00.1 ASSESSMENTS Encounter Date Diagnosis Assessment Notes Treatment Notes Treatment Clinical Notes Section Notes 07/14/2025 Recurrent vesicular dermatitis due to herpes simplex virus (HSV) (ICD-10 - B00.1) 01/29/2025 Contact dermatitis, unspecified contact dermatitis type, unspecified trigger (ICD-10 - L25.9) discuss elastic products with direct contact to skin; advised to contact me if not resolving wiht above tx We discussed allergy consult and she wants to hold on that 12/11/2024 EIN (endometrial intraepithelial neoplasia) (ICD-10 - N85.02) S/p uncomplicated abdominal hysterectomy and bilat salpingo-oophore ctomy. Pathology pending. Pain controlled, patient agrees to [...] otherwise will follow up if no improvement. 09/16/2024 Annual physical exam (ICD-10 - Z00.00) await labs for final preop comments 09/16/2024 Pre-op evaluation (ICD-10 - Z01.818) await labs for final preop comments 12/11/2024 Mild intermittent asthma without complication (ICD-10 - J45.20) 12/11/2024 Pure hypercholesterolemia (ICD-10 - E78.00) 12/11/2024 Other I am seeing the patient under the supervision of the co-signing physician. The physician was available for consultation at the time of the office visit. Hospital records reviewed PLAN OF TREATMENT Future Test Test Name Order Date LIPID PROFILE 08/18/2019 CBC W/OUT AUTOMATED DIFF 08/18/2019 COMP. METABOLIC 08/18/2019 LIPID PROFILE 08/18/2020 COMP. METABOLIC 08/18/2020 LIPID PROFILE 08/24/2020 TSH 08/24/2020 CBC W/OUT AUTOMATED DIFF 08/24/2020 BASIC METABOLIC PANEL 08/24/2020 25 [place] Vitamin D 08/24/2020 LIPID PROFILE 07/15/2021 TSH 07/15/2021 CBC W/OUT AUTOMATED DIFF 07/15/2021 COMP. METABOLIC 07/15/2021 25 OH Vitamin D 07/15/2021 LIPID PROFILE 09/13/2022 CBC W/ AUTOMATED DIFF 09/13/2022 COMP. METABOLIC 09/13/2022 TSH WITH REFLEX TO FT4 09/13/2022 LIPID PANEL 09/14/2023 CBC (COMPLETE BLOOD COUNT) 09/14/2023 COMPREHENSIVE METABOLIC PANEL 09/14/2023 Insurance Providers Payer Name Payer Address Payer Phone Subscriber Number Group Number Insured Name Patient Relationship to Insured Coverage Start Date Coverage End Date [employer] [address] TAMI WAGGONER [phone] [id number] VIVIANA GEORGE Self - patient is the insured [facility] [address] [address] [place] [address] [id number] VIVIANA GEORGE Self - patient is the insured MEDICAL (GENERAL) HISTORY Medical History History ICD Code Allergies -cats , sheep, wool Asthma - allergy induced rare flares. High cholesterol. HSV outbreaks on nose- right nare. Last flare 5 years OBGY: Dr Enrique Abnormal pap endometriosis uterus Surgical History Surgery Date(Month/Year) open hysterectomy b/l salpin go-oophorectomy, sentinel lymph node dissections (b/l) 12/02/24 Hospitalization History Reason Date(Month/Year) [facility]. Lumb ar compression fractures, left foot fractures. 1995 [facility]: see above 12/02/24
--- OUTSIDE RECORDS SUMMARY | 2025-07-16 18:21 | XMS_ITS | Encounter Summary ---
Author Organization [facility] Address [address] [place] [address] Care Team Providers Care Engineering Technical Analyst Name Role Phone Jaxson Tian DO Primary Care Provider [phone] Addis Figueroa MD Unavailable Benedict Enrique MD Unavailable [phone] Encounter Details Date Type Department Care Team (Late st Contact Info) Description 12/24/2024 Scanned Document [facility] Division of Gynecologic Oncology in [address] [phone] Addis Figueroa MD [address] [address] Social History Tobacco Use Types Packs/Day Years Used Date Smoking Tobacco: Never Smokeless Tobacco: Never Alcohol Use Standard Drinks/Week Comments Yes 1 (1 standard drink = 0.6 oz pur e alcohol) [facility] Utilities Answer Date Recorded In the past 12 months has [employer], [employer], oil, or water [employer] threatened to shut off services in your [...] were you homeless or living in a senior care (including now)? No 12/03/2024 Comments Unknown Sex [...] on filedocumented in this encounter Care Teams Engineering Technical Analyst Relationship Specialty Start Date End Date Jaxson Tian DO [address] [place], [place] [phone] PCP - General Internal Medicine 10/01/24 Addis Figueroa MD 85 [facility] [address] [place] [address] Physician Gynecology Oncology 10/30/24 Benedict Enrique MD [address] [place] [address] Obstetrics and Gynecology 10/30/24 documented as of this encounter
--- OUTSIDE RECORDS SUMMARY | 2025-07-16 18:21 | XMS_ITS | Clinical Summary ---
Author Organization [facility] Address [address] [place] [address] Care Team Providers Care Overhead Garage Door Hanger Name Role Phone Jaxson Tian DO Primary Care Provider [phone] Addis Figueroa MD Unavailable Benedict Enrique MD Unavailable [phone] Allergies Active Allergy Reactions Criticality Noted Date Comments Latex Itching Low 09/22/2024 Metronidazole Hives Medium 12/08/2020 Tetracycline Hives High 09/29/2022 Medications atorvastatin (LIPITOR) 40 MG tablet Take 1 tablet (40 mg total) by mouth nightly. Active multivitamin Tab tablet Take 1 tablet by mouth every morning. Active acetaminophen (TYLENOL) 325 MG tabletIndications:P ostoperative state,EIN (endometrial intraepithelial neoplasia) Take 3 tablets (975 mg total) by mouth every 6 (six) hours around the clock. 12/05/19 25 Active calcium carbonate (TUMS) 500 MG chewable tabletIndications:P ostoperative state,EIN (endometrial intraepithelial neoplasia) Chew 2 tablets (1,000 mg total) 2 times daily (every 12 hours) as needed for indigestion or heartburn. 12/05/19 25 Active gabapentin (NEURONTIN) 300 MG capsuleIndications: Postoperative state,EIN (endometrial intraepithelial neoplasia) Take 1 capsule (300 mg total) by mouth 3 (three) times a day. 90 capsule 12/05/19 25 Active ibuprofen (MOTRIN) 600 MG tabletIndications:P ostoperative state,EIN (endometrial intraepithelial neoplasia) Take 1 tablet (600 mg total) by mouth every 6 (six) hours around the clock. 120 tablet 12/05/19 Active simethicone (MYLICON) 80 MG chewable tabletIndications:P ostoperative state,EIN (endometrial intraepithelial neoplasia) Chew 1 tablet (80 mg total) every 6 (six) hours. 12/05/19 Active polyethylene glycol (miraLAx) 17 g packetIndications:P ostoperative state Take 1 packet (17 g total) by mouth daily. 12/05/19 Active Active Problems Problem Noted Date Diagnosed Date Postoperative state 12/02/2024 Class 1 obesity due to exces s calories without serious comorbidity with body mass index (BMI) of 31.0 to 31.9 in adult 11/19/2024 Assessment & Plan (11/19/2024 2:44 PM EDT): Body mass index is 31.12 kg/m . Recommend diet, exercise and lifestyle modifications. 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 No reiki practitioner onc followup needed. Should see her reiki practitioner for annual exams. 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 No actual cancer, all was EIN. No fluid in vagina, cuff intact. OK to increase activity as tolerated except maintain lifting restriction and pelvic rest. RTC 6-8 weeks cuff check. 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 Discussed with patient that EIN/atypical hyperplasia, while a precancerous condition, can be associated with up to 40% risk of co-existent endometrial cancer at time of hysterectomy. Since she had a D&C not just office biopsy her risk is likely lower than that. Recommendation is for surgical treatment with robohyst/bso posible node dissection. Will send uterus for frozen section, and if cancer will remove sentinel nodes. This will require cervical injection prior to hysterectomy. If sentinel nodes don't map, will perform full LND only if large amount of cancer, high grade cancer, or deep invasion into the uterine muscle is found. This is unlikely. Alternative of medical treatment with IUD also discussed but not recommended. IC signed and labs drawn. She will see PAT for preop assessment. Hyperlipidemia 07/06/2021 Assessment & Plan (11/19/2024 2:47 PM EDT): Compliant with statin therapy. Continue current medication regimen as prescribed. Follow up with provider as directed Asthma 01/02/2014 Assessment & Plan (11/19/2024 2:46 PM EDT): Medication compliant with inhaler therapy. No recent flares or hospitalizations. Continue current medication regimen as prescribed. Follow up with provider as directed Immunizations Immunization Administration Dates Next Due Influenza, Quadrivalent (FLU ARIX, AFLURIA, FLULAVAL, FLUZONE) Preservative Free IM 06/11/2022 Zoster Vaccine Recombinant (Shingrix) 08/24/2020 ,06/16/2020 Family History Medical History Relation Name Comments Brain cancer Father DOD Lymphoma Mother mantle cell in remission Relation Name Status Comments Father Mother Social History Tobacco Use Types Packs/Day Years Used Date Smoking Tobacco: Never Smokeless Tobacco: Never Tobacco Cessation:Counseling Given: Not Answered Alcohol Use Standard Drinks/Week Comments Yes 1 (1 standard drink = 0.6 oz pur e alcohol) [facility] [employer] Answer Date Recorded In the past 12 months has th e [employer], [employer], oil, or water [employer] threatened to shut off services in your [...] any time in the past 12 m [facility], were you homeless or living in a m[facility]p (including now)? No 12/03/2024 Comments Unknown Sex and Gender Information Value Date Recorded Sex Assigned at Female 10/01/2024 6:12 AM EST Legal Sex Female 4:47 PM EDT Gender Identity Female 12/02/2024 9:08 AM EDT Sexual Orientation Heterosexual (straight) 12/02 9:08 AM EDT Last Filed Vital Signs Vital Sign Reading Time Taken Comments Blood Pressure 143/86 02/12/2025 10:33 AM EDT Pulse 81 02/12/2025 10:33 AM EDT Temperature 37.1 C (98.7 F) 02/12/2025 10:33 AM EDT Respiratory Rate 18 02/12/2025 10:33 AM EDT Oxygen Saturation 97% 02/12/2025 10:33 AM EDT Inhaled Oxygen Concentration - - Weight 87.8 kg (193 lb 9.6 oz) 02/12/2025 10:33 AM EDT Height 167.6 cm (5' 6 ) 02/12/2025 10:33 AM EDT Body Mass Index 31.25 02/12/2025 10:33 AM EDT Plan of Treatment Health Maintenance Due Date Last Done Comments Hepatitis C Virus Screening 1969 HIV Screening 1982 DTaP/Tdap/Td Vaccines (1 - Tdap) 1988 Hepatitis B Vaccines (1 of 3 - 19+ 3-dose series) 1988 Pneumococcal Vaccines 50+ (1 of 2 - PCV) 1988 Colonoscopy 2014 RSV Vaccine 50 years and old er and Patients (1 - Risk 50-74 years 1-dose series) 2019 Influenza Vaccine 04/10/2025 06/11/2022, 06/17/2020 Mammogram 04/22/2025 04/22/2024, 04/3 , 11/08/2021 COVID-19 Vaccine ( - 2024-2 6 season) 2025 06/11/2022, 01/21/2022, 08/11/2021, Additional history exists Pap Smear (Ages 21-65) 07/30/2027 , 07/26/2023, 07/19/2022, Additional history exists Zoster (Shingles) Vaccine Completed 08/24/2020, 03/2020 Procedures Procedure Name Priority Date/Time Associated Diagnosis Comments THINPREP PAP(TRACK SUPERINTENDENT) HPV SCR RFX HPV 16,18/45 Routine 07/30/2024 12:00 AM EST MG SCREENING DIGITAL BREAST MICHELLE- BILATERAL Routine 04/22/2024 4:37 PM EDT from Last 3 Months or Most Recently Relevant to Health Maintenance Results * ThinPrep Pap(Purchasing Expeditor) HPV Scr Rfx HPV 16,18/45 (07/30/2024 12:00 AM EST) Clinical Information ERVIN RHOADES Comment:None given LMP: ERVIN RHOADES Comment:07/21/2024 Previous PAP: DYLAN RHOADES Comment:07/26/2023 Previous Biopsy MARITA RHOADES Comment:NONE GIVEN Source: ERVIN RHOADES Comment:Cervix, Endocervix Statement of Adequacy: ERVIN RHOADES Comment: Satisfactory for evaluation. Endocervical/transformation zone component present. Interpretation/Res ult: ERVIN RHOADES Comment: Cytology Results: Negative for intraepithelial lesion or malignancy. Reactive cellular changes associated with inflammation (includes typical repair) Comment: ERVIN RHOADES Comment: This case could not be evaluated with computer assisted technology. The slide was manually screened according to routine procedures. Java Development Team Lead: ESTEBAN RHOADES Comment: YP, CT(ASCP) CT screening location: [place] [address] Pathologist: NADER RHOADES Comment: Jose Carlos Zhang M.D., (electronic signature) [facility] [phone] Comment ERVINESTEBAN RHOADES Comment: EXPLANATORY NOTE: The Pap is a screening test for cervical cancer. It is not a diagnostic test and is subject to false negative and false positive results. It is most reliable when a satisfactory sample, regularly obtained, is submitted with relevant clinical findings and history, and when the Pap result is evaluated along with historic and current clinical information. Hpv Mrna [id number] Not Detected Not Detected [facility] Comment: Methodology: Early Intervention Specialist-Mediated Amplification This assay detects E6/E7 viral messenger RNA (mRNA) from 14 high-risk HPV types (16,18,31,33,35,39,45,51,52,56,58,59,66,68). Cervical sources are required for HPV testing. If a vaginal source from a patient who has had a total hysterectomy with removal of cervix was submitted, please contact the testing laboratory for alternative testing options. For additional information, please refer to http://education.IRIS-RFID/faq/WBY298c4 (This link if provided for information/ educational purposes only.) 07/30/2024 08/01/2024 12: 06 AM EST Narrative [facility] - 08/06/2024 3:08 PM EST [id number] RTN Benedict Enrique MD LAB AMB PATH/CYTO ORDERABLES Final Result [facility] [address] [facility] [address], [place] [address] [facility] [address] [place] [address], [place] [phone] * MG SCREENING DIGITAL BREAST MICHELLE- BILATERAL (04/22/2024 4:37 PM EDT) Anatomical Region Laterality Modality Other 04/22/2024 3:45 PM EDT 04/22/2024 3:45 PM EDT Narrative 05/23/2024 8:49 AM EDT HISTORY: Patient is 54 years old and is seen for screening. The patient has no personal history of breast or ovarian cancer. The patient has no family history of breast cancer. FILMS COMPARED: The present examination has been compared to prior imaging studies dated 10/26/2021 and 12/30/2022. MICHELLE STATEMENT: Computer-aided detection was utilized by the radiologist in the interpretation of this examination. 3D tomosynthesis digital mammographic images were obtained using standard projections. MAMMOGRAM FINDINGS: There are scattered fibroglandular densities. (ACR BIRADS density Category b) * There are multiple similar new fat containing, oval masses seen in the medial aspect of the right breast. These findings are most consistent with multiple oil cysts. In the left breast, no suspicious masses, calcifications or other abnormalities are seen. IMPRESSION: There is no mammographic evidence of malignancy. Routine follow-up mammogram in 1 year is recommended. The patient will receive a lay summary of the results of this breast imaging exam. Lay summaries for mammography examinations will also identify the patients personal breast tissue composition as required by state law. BIRADS Category 2: Benign Thank you for referring your patient to , Jayna Fernández MD [id number] (Electronically Signed - 05/23/2024 08:49) Procedure Note Jayna Fernández MD - 05/23/2024 HISTORY: Patient is 54 years old and is seen for screening. The patient has no personal history of breast or ovarian cancer. The patient has no family history of breast cancer. FILMS COMPARED: The present examination has been compared to prior imaging studies dated10/26/2021 and 12/30/2022. MICHELLE STATEMENT: Computer-aided detection was utilized by the radiologist in theinterpretation of this examination. 3D tomosynthesis digital mammographic images were obtained using standardprojections. MAMMOGRAM FINDINGS: There are scattered fibroglandular densities. (ACR BIRADS density Categoryb) * There are multiple similar new fat containing, oval masses seen in themedial aspect of the right breast. These findings are most consistent with multiple oil cysts. In the left breast, no suspicious masses, calcifications or otherabnormalities are seen. IMPRESSION: There is no mammographic evidence of malignancy. Routine follow-up mammogram in 1 year is recommended. The patient will receive a lay summary of the results of this breastimaging exam. Lay summaries for mammography examinations will alsoidentify the patients personal breast tissue composition as required bystate law. BIRADS Category 2: Benign Thank you for referring your patient to us, Jayna Fernández MD [id number] (Electronically Signed - 05/23/2024 08:49) us Rad-Self Referred [facility] LEGACY PROCEDURES Final Result from Last 3 Months or Most Recently Relevant to Health Maintenance Insurance [facility] [place] [id number] [employer] Advance Directives Documents on File Type Date Recorded Patient Receiving Weigher Expl anation Advance Directive-Scan 12/02/2024 HCR/P FROYLAN * Full Code (Latest Code Status on File) Date Activated Date Inactivated Comments 12/02/2024 2:09 PM * Full Code Date Activated Date Inactivated Comments 12/02/2024 8:40 AM 12/02/2024 2:09 PM * Full Code Date Activated Date Inactivated Comments 10/01/2024 6:40 AM 12/02/2024 8:40 AM Care Teams Overhead Garage Door Hanger Relationship Specialty Start Date End Date Jaxson Tian DO [address] [place] [address] PCP - General Internal Medicine 10/01/24 Addis Figueroa MD [address] [facility] [address] [place] [address] Physician Gynecology Oncology 10/30/24 Benedict Enrique MD [address] [place] [address] Obstetrics and Gynecology 10/30/24
--- OUTSIDE RECORDS SUMMARY | 2025-07-16 18:21 | XMS_ITS | Encounter Summary ---
Author Organization [facility] Address [address] [place] [address] Care Team Providers Care Shipwright Supervisor Name Role Phone Jaxson Tian DO Primary Care Provider [phone] Addis Figueroa MD Unavailable Benedict Enrique MD Unavailable [phone] Encounter Details Date Type Department Care Team (Late st Contact Info) Description 01/15/2025 Scanned Document [facility] Division of Gynecologic Oncology in [address] [phone] Addis Figueroa MD [address] [address] Social History Tobacco Use Types Packs/Day Years Used Date Smoking Tobacco: Never Smokeless Tobacco: Never Alcohol Use Standard Drinks/Week Comments Yes 1 (1 standard drink = 0.6 oz pur e alcohol) [facility] Utilities Answer Date Recorded In the past 12 months has [employer], [employer], oil, or water [employer] threatened to shut off services in your [...] were you homeless or living in a fci (including now)? No 12/03/2024 Comments Unknown Sex [...] on filedocumented in this encounter Care Teams Shipwright Supervisor Relationship Specialty Start Date End Date Jaxson Tian DO [address] [place], [place] [id number] PCP - General Internal Medicine 10/01/24 Addis Figueroa MD [address] [facility] [address] [place] [address] Physician Gynecology Oncology 10/30/24 Benedict Enrique MD [address] [place] [address] Obstetrics and Gynecology 10/30/24 documented as of this encounter
--- OUTSIDE RECORDS SUMMARY | 2025-07-16 18:21 | XMS_ITS ---
Author Name [facility] Organization Unknown Results Test Name/Text Value Interpretation Date Range Source Phosphate SerPl-mCnc 3.0 mg/dL Normal 12/04/2024 2.7 - 4. 5 [facility] Glucose SerPl-mCnc 83.0 mg/dL Normal 12/04/2024 65 - 99 [facility] Chloride SerPl-sCnc 107.0 mmol/L Normal 12/04/2024 98 - 1 07 [facility] CO2 SerPl-sCnc 25.0 mmol/L Normal 12/04/2024 22 - 33 HH CCT Creat SerPl-mCnc 0.8 mg/dL Normal 12/04/2024 0.4 - 1.1 HH CCT Potassium SerPl-sCnc 4.1 mmol/L Normal 12/04/2024 3.4 - 5 .3 [facility] BUN SerPl-mCnc 9.0 mg/dL Normal 12/04/2024 8 - 21 [facility] T GFR/BSA.pred SerPlBld NDA-GGP-PiVQpd 87.0 Normal 12/04/2024 59 - [facility]CT Sodium SerPl-sCnc 139.0 mmol/L Normal 12/04/2024 136 - 14 5 [facility] Calcium SerPl-mCnc 8.5 mg/dL Below low normal 12/04/2024 8.7 - 10.5 [facility] BUN/Creat SerPl 11.0 Ratio Normal 12/04/2024 10 - 25 HH CCT Anion Gap Bld-sCnc 7.0 Normal 12/04/2024 7 - 17 [facility] Magnesium SerPl-mCnc 2.0 mg/dL Normal 12/04/2024 1.6 - 2. 7 [facility] WBC num Bld Auto 15.7 Thou/uL Above high normal 12/04/2024 4 - 11 [facility] RDW RBC Auto-Rto 13.4 % Normal 12/04/2024 11.5 - 14.5 H[facility]CT MCHC RBC Auto-mCnc 33.6 g/dL Normal 12/04/2024 30 - 36 [facility] MCV RBC Auto 86.0 fL Normal 12/04/2024 80 - 100 [facility] MCH RBC Qn Auto 28.9 pg Normal 12/04/2024 27 - [address] RBC num Bld Auto 3.7 Mil/uL Below low normal 12/04/2024 4 - 5.4 [facility] PMV Bld Auto 10.5 fL Normal 12/04/2024 7.5 - 12.5 [facility] Hct VFr Bld Auto 31.8 % Below low normal 12/04/2024 35 - 47 [facility] Hgb Bld-mCnc 10.7 g/dL Below low normal 12/04/2024 11.7 - 15 .7 [facility] Platelet num Bld Auto 321.0 Thou/uL Normal 12/04/2024 150 - 450 [facility] Albumin SerPl-mCnc 3.9 g/dL Normal 12/03/2024 3.5 - 5 [facility] Chloride SerPl-sCnc 105.0 mmol/L Normal 12/03/2024 98 - 1 07 H[facility]CT ALT SerPl-cCnc 40.0 U/L Normal 12/03/2024 10 - 50 [facility] T Prot SerPl-mCnc 6.0 g/dL Below low normal 12/03/2024 6.3 - 8.3 [facility] Sodium SerPl-sCnc 139.0 mmol/L Normal 12/03/2024 136 - 14 5 [facility]CT Glucose SerPl-mCnc 99.0 mg/dL Normal 12/03/2024 65 - 99 H[facility]CT Globulin Ser Calc-mCnc 2.1 g/dL Normal 12/03/2024 1.5 - 3.9 [facility]CT Albumin/Glob SerPl 1.9 Ratio Normal 12/03/2024 1 - 3 [facility]CT Potassium SerPl-sCnc 4.2 mmol/L Normal 12/03/2024 3.4 - 5 .3 H[facility]CT Bilirub SerPl-mCnc 0.4 mg/dL Normal 12/03/2024 0.2 - 1 [facility] Anion Gap Bld-sCnc 11.0 Normal 12/03/2024 7 - 17 [facility] GFR/BSA.pred SerPlBld EFF-BQM-GfPZfs >90.0 Normal 12/03/2024 59 - H[facility]CT CO2 SerPl-sCnc 23.0 mmol/L Normal 12/03/2024 22 - 33 HH CCT BUN SerPl-mCnc 8.0 mg/dL Normal 12/03/2024 8 - 21 [facility] T Calcium SerPl-mCnc 8.7 mg/dL Normal 12/03/2024 8.7 - 10.5 [facility]CT BUN/Creat SerPl 13.0 Ratio Normal 12/03/2024 10 - 25 HH CCT AST SerPl-cCnc 42.0 U/L Normal 12/03/2024 10 - 50 HH[facility] T Creat SerPl-mCnc 0.6 mg/dL Normal 12/03/2024 0.4 - 1.1 HH CCT ALP SerPl-cCnc 49.0 U/L Normal 12/03/2024 32 - 122 HH[facility] T Magnesium SerPl-mCnc 1.9 mg/dL Normal 12/03/2024 1.6 - 2. 7 [facility]CT Phosphate SerPl-mCnc 1.8 mg/dL Below low normal 12/03/2024 2 .7 - 4.5 H[facility]CT Imm Granulocytes num Bld Auto 0.15 Thou/uL Above high normal 12/03/2024 0 - 0.1 H[facility]CT Lymphocytes/leuk NFr Bld Auto 5.4 % Normal 12/03/2024 [facility] Lymphocytes num Bld Auto 1.06 Thou/uL Below low normal 12/03/2024 1.5 - 4.5 H[facility]CT PMV Bld Auto 9.7 fL Normal 12/03/2024 7.5 - 12.5 H[facility]CT Basophils num Bld Auto 0.02 Thou/uL Normal 12/03/2024 0 - 0.2 H[facility]CT MCHC RBC Auto-mCnc 33.2 g/dL Normal 12/03/2024 30 - 36 [facility]CT Monocytes/leuk NFr Bld Auto 8.8 % Normal 12/03/2024 H[facility]CT Hct VFr Bld Auto 31.9 % Below low normal 12/03/2024 35 - 47 H[facility]CT MCH RBC Qn Auto 27.9 pg Normal 12/03/2024 27 - [address] Hgb Bld-mCnc 10.6 g/dL Below low normal 12/03/2024 11.7 - 15 .7 H[facility]CT Neutrophils/leuk NFr Bld Auto 84.9 % Normal 12/03/2024 [facility] WBC num Bld Auto 19.5 Thou/uL Above high normal 12/03/2024 4 - 11 [facility]CT Basophils/leuk NFr Bld Auto 0.1 % Normal 12/03/2024 [facility] RDW RBC Auto-Rto 12.9 % Normal 12/03/2024 11.5 - 14.5 H[facility]CT Eosinophil/leuk NFr Bld Auto 0.0 % Normal 12/03/2024 [facility]CT Monocytes num Bld Auto 1.72 Thou/uL Above high normal 2024 0.2 - 1.5 [facility]CT RBC num Bld Auto 3.8 Mil/uL Below low normal 12/03/2024 4 - 5.4 [facility]CT Imm Granulocytes/leuk NFr Bld Auto 0.8 % Normal 12/03/2024 [facility] Neutrophils num Bld Auto 16.59 Thou/uL Above high normal 12/03/2024 2 - 7.5 [facility]CT MCV RBC Auto 84.0 fL Normal 12/03/2024 80 - 100 [facility]CT Eosinophil num Bld Auto 0.0 Thou/uL Normal 12/03/2024 0 - 0.7 [facility]CT Platelet num Bld Auto 359.0 Thou/uL Normal 12/03/2024 150 - 450 H[facility]CT GFR/BSA.pred SerPlBld PCU-CNM-RbZBjl >90.0 Normal 11/20/2024 59 - H[facility]CT Anion Gap Bld-sCnc 14.0 Normal 11/20/2024 7 - 17 H[facility]CT CO2 SerPl-sCnc 21.0 mmol/L Below low normal 11/20/2024 22 - 33 [facility]CT Calcium SerPl-mCnc 9.5 mg/dL Normal 11/20/2024 8.7 - 10.5 H[facility]CT Creat SerPl-mCnc 0.7 mg/dL Normal 11/20/2024 0.4 - 1.1 HH CCT Sodium SerPl-sCnc 139.0 mmol/L Normal 11/20/2024 136 - 14 5 H[facility]CT Potassium SerPl-sCnc 4.3 mmol/L Normal 11/20/2024 3.4 - 5 .3 [facility]CT Chloride SerPl-sCnc 104.0 mmol/L Normal 11/20/2024 98 - 1 07 [facility]CT BUN SerPl-mCnc 13.0 mg/dL Normal 11/20/2024 8 - [address] Glucose SerPl-mCnc 91.0 mg/dL Normal 11/20/2024 65 - 99 [facility] BUN/Creat SerPl 19.0 Ratio Normal 11/20/2024 10 - 25 HH CCT Lymphocytes num Bld Auto 2.16 Thou/uL Normal 11/20/2024 1.5 - 4.5 [facility]CT RBC num Bld Auto 5.14 Mil/uL Normal 11/20/2024 4 - 5.4 [facility]CT Imm Granulocytes/leuk NFr Bld Auto 0.3 % Normal 11/20/2024 [facility] Imm Granulocytes num Bld Auto 0.03 Thou/uL Normal 11/20/2024 0 - 0.1 [facility]CT Neutrophils num Bld Auto 5.7 Thou/uL Normal 11/20/2024 2 - 7.5 [facility]CT Lymphocytes/leuk NFr Bld Auto 24.1 % Normal 11/20/2024 [facility]CT Basophils/leuk NFr Bld Auto 0.8 % Normal 11/20/2024 [facility] Platelet num Bld Auto 409.0 Thou/uL Normal 11/20/2024 150 - 450 [facility]CT MCHC RBC Auto-mCnc 33.6 g/dL Normal 11/20/2024 30 - 36 [facility]CT Eosinophil/leuk NFr Bld Auto 4.1 % Normal 11/20/2024 [facility]CT Hgb Bld-mCnc 14.5 g/dL Normal 11/20/2024 11.7 - 15.7 [facility] T Eosinophil num Bld Auto 0.37 Thou/uL Normal 11/20/2024 0 - 0.7 [facility]CT Monocytes num Bld Auto 0.64 Thou/uL Normal 11/20/2024 0.2 - 1.5 [facility]CT Basophils num Bld Auto 0.07 Thou/uL Normal 11/20/2024 0 - 0.2 [facility]CT MCV RBC Auto 84.0 fL Normal 11/20/2024 80 - 100 [facility] Monocytes/leuk NFr Bld Auto 7.1 % Normal 11/20/2024 [facility] RDW RBC Auto-Rto 12.5 % Normal 11/20/2024 11.5 - 14.5 [facility]CT Neutrophils/leuk NFr Bld Auto 63.6 % Normal 11/20/2024 [facility] WBC num Bld Auto 9.0 Thou/uL Normal 11/20/2024 4 - 11 [facility]CT MCH RBC Qn Auto 28.2 pg Normal 11/20/2024 27 - [address] Hct VFr Bld Auto 43.2 % Normal 11/20/2024 35 - 47 HH CCT PMV Bld Auto 9.7 fL Normal 11/20/2024 7.5 - 12.5 [facility] History of Medication Use Medication Directions Dispensed Refills Start Date End Date [facility] acetaminophen (TYLENOL) 325 MG tablet Take 3 tablets (975 mg total) by mouth every 6 (six) hours around the clock. 12/04/2024 active calcium carbonate (TUMS) 500 MG chewable tablet Chew 2 tablets (1,000 mg total) 2 times daily (every 12 hours) as needed for indigestion or heartburn. 12/04/2024 active gabapentin (NEURONTIN) 300 MG capsule Take 1 capsule (300 mg total) by mouth 3 (three) times a day. 12/04/2024 active oxyCODONE (ROXICODONE) 5 MG immediate release tablet Take 1 tablet (5 mg total) by mouth 4 times daily (every 6 hours) as needed for severe pain. Max Daily Amount: 20 mg 12/04/2024 active polyethylene glycol (miraLAx) 17 g packet Take 1 packet (17 g total) by mouth daily. 12/04/2024 active simethicone (MYLICON) 80 MG chewable tablet Chew 1 tablet (80 mg total) every 6 (six) hours. 12/04/2024 active acetaminophen (TYLENOL) 500 MG tablet Take 2 tablets (1,000 mg total) by mouth 4 times daily (every 6 hours) as needed for mild pain. 10/01/2024 active ibuprofen (MOTRIN) 600 MG tablet Take 1 tablet (600 mg total) by mouth 4 times daily (every 6 hours) as needed for mild pain or moderate pain. 10/01/2024 active estradiol 0.05 mg/24 hr semiweekly transdermal patch Apply 1 patch twice a week by transdermal route. 07/30/2024 active progesterone micronized 100 mg capsule Take 1 capsule every day by oral route for 90 days. 07/30/2024 active estradiol (VIVELLE-DOT) 0.05 MG/24HR external patch APPLY 1 PATCH TRANSDERMALLY TWICE A WEEK 07/30/2024 active progesterone (PROMETRIUM) 100 MG capsule take 1 capsule by mouth every day for 90 days 07/30/2024 active estradiol 0.1 mg/24 hr semiweekly transdermal patch APPLY 1 PATCH TRANSDERMALLY TWICE A WEEK 4 completed BinaxNOW COVID-19 Ag Card kit TEST DIRECTED 4 completed albuterol sulfate HFA 90 mcg/actuation aerosol inhaler INHALE 2 PUFFS INTO THE LUNGS EVERY 6 HOURS FOR 30 DAYS 2 completed ketoconazole 2 % shampoo USE ON SCALP 3 TIMES A WEEK, LEAVE ON 3-5 MINUTES AND RINSE 2 completed Flucelvax Quad [id number] (PF) 60 mcg (15 mcg x 4)/0.5 mL IM syringe 9 completed Flucelvax Quad [id number] (PF) 60 mcg (15 mcg x 4)/0.5 mL IM syringe 9 completed estradiol 0.05 mg/24 hr semiweekly transdermal patch active progesterone micronized 100 mg capsule active atorvastatin 40 mg tablet TAKE 1 TABLET BY MOUTH EVERY DAY active progesterone micronized 200 mg capsule TAKE 1 PILL ORALLY FIRST 12 DAYS OF EACH CALENDAR MONTH STARTING 2022 active None recorded. (No additional sig information) completed atorvastatin (LIPITOR) 40 MG tablet Take 1 tablet (40 mg total) by mouth nightly. active atorvastatin (LIPITOR) 40 MG tablet atorvastatin 40 mg tablet TAKE 1 TABLET BY MOUTH EVERY DAY active multivitamin Tab tablet Take 1 tablet by mouth every morning. active Allergies Allergen Reaction Severity Comment Documented Date Source Statu s LATEX ITCHING 09/22/2024 [facility] active TETRACYCLINE HIVES 09/29/2022 [facility] active METRONIDAZOLE HIVES 12/08/2020 [facility] active FLAGYL [facility] Problems Problem Status Onset Date Problem Type Date of Resoluti on Source Postoperative state active 2024-12-02 ProblemAct [facility] Hyperlipidemia active 2021-07-06 ProblemAct [facility] EIN (endometrial intraepithelial neoplasia) active 2024-10-30 ProblemAct H [facility] Asthma active 2014-01-02 ProblemAct HHT Class 1 obesity due to excess calories without serious comorbidity with body mass index (BMI) of 31.0 to 31.9 in adult active 2024-11-19 ProblemAct [facility] Endometriosis of uterus active 2017-01-09 ProblemAct [facility] Abnormal uterine bleeding active 2024-07-30 ProblemAct [facility] Perimenopausal state active 2021-07-04 ProblemAct [facility] Menopausal syndrome active 2023-03-28 ProblemAct [facility] Polyp of corpus uteri active 2024-08-19 ProblemAct [facility] Hypercholesterolemia active 2021-07-06 ProblemAct [facility] Human papilloma virus infection active 2022-07-19 [facility] Immun[facility] Vaccine Date Source Lot Number Status COVID-19, mRNA, LNP-S, bival ent, PF, 50 mcg/0.5 mL or 25mcg/0.25 mL dose 06/11/2022 [facility] [id number] completed Influenza, Quadrivalent (FLU ARIX, AFLURIA, FLULAVAL, FLUZONE) Preservative Free IM 06/11/2022 [facility] [id number] completed COVID-19, mRNA, LNP-S, PF, 1 00 mcg/0.5mL dose or 50 mcg/0.25mL dose 01/21/2022 [facility] [id number] completed COVID-19, mRNA, LNP-S, PF, 1 00 mcg/0.5mL dose or 50 mcg/0.25mL dose 08/11/2021 [facility] [id number] completed COVID-19, mRNA, LNP-S, PF, 30 mcg/0.3 mL dose 12/20/2020 [facility] [id number] completed COVID-19, mRNA, LNP-S, PF, 30 mcg/0.3 mL dose 11/29/2020 [facility] [id number] completed Zoster Vaccine Recombinant (Shingrix) 08/24/2020 [facility] [id number] completed Influenza, recombinant, trivalent, PF 06/17/2020 [facility] [id number] completed Zoster Vaccine Recombinant (Shingrix) 06/16/2020 [facility] [id number] completed Tdap 06/15/2020 [facility] [id number] completed Encounters Encounter Type Encounter Reason Primary Diagnosis Location Date Ambulatory Endometrial intraepithelial neoplasia (EIN) Endometrial intraepithelial neoplasia (EIN) [facility] 02/12/2025 Ambulatory Endometrial intraepithelial neoplasia (EIN) Endometrial intraepithelial neoplasia (EIN) [facility] 12/18/2024 Inpatient Other specified postprocedural states Other specified postprocedural states [facility] 12/02/2024 Ambulatory Encounter for other preprocedural examination Encounter for other preprocedural examination [facility] 11/19/2024 Ambulatory Encounter for other preprocedural examination Encounter for other preprocedural examination [facility] 11/19/2024 Ambulatory Endometrial intraepithelial neoplasia (EIN) Endometrial intraepithelial neoplasia (EIN) [facility] 10/30/2024 Ambulatory Abnormal uterine and vaginal bleeding, unspecified Abnormal uterine and vaginal bleeding, unspecified [facility] 10/01/2024 Ambulatory Polyp of corpus uteri Polyp of corpus [place] [facility] 10/01/2024 Ambulatory Encounter for other preprocedural examination Encounter for other preprocedural examination [facility] 09/18/2024 Ambulatory Abnormal uterine and vaginal bleeding, unspecified Abnormal uterine and vaginal bleeding, unspecified [facility] 09/18/2024 Ambulatory 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 [facility], [facility] 08/19/2024 Ambulatory 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 [facility], [facility] 08/19/2024 Ambulatory 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 [facility], [facility] 07/30/2024 Ambulatory Unspecified menopaus al and perimenopausal disorder [facility] 07/26/2023 Ambulatory Unspecified menopaus al and perimenopausal disorder [facility] 06/13/2023 Ambulatory [facility] 03/28/2023 [facility] 07/19/2022 Ambulatory [facility] 07/25/2021 Ambulatory [facility] 07/25/2021 Ambulatory [facility], [facility] 07/04/2021 Care Team Organization Name Specialty Phone Email Start Date End Da te [facility] 02/12/2025 03/13/20 25 [facility] 10/01/2024 [facility] 07/12/2023 025 [facility] 06/01/2023 024 [facility] P[facility],No Primary Care 09/29/2022 03/13/2025 [facility], [facility] 07/31/2022 [facility], [facility] 07/04/2021 07/19/2022 [facility] NO PCP Primary Care
--- OUTSIDE RECORDS SUMMARY | 2025-07-16 18:21 | XMS_ITS | Encounter Summary ---
Author Organization [facility] Address [address] [place] [address] Care Team Providers Care Mergers And Acquisitions Associate Name Role Phone Jaxson Tian DO Primary Care Provider Addis Figueroa MD Unavailable Benedict Enrique MD Unavailable [phone] Encounter Details Date Type Department Care Team (Late st Contact Info) Description 12/24/[address] [facility] Division of Gynecologic Oncology in [address] [phone] Addis Figueroa MD [address] [address] Social History Tobacco Use Types Packs/Day Years Used Date Smoking Tobacco: Never Smokeless Tobacco: Never Alcohol Use Standard Drinks/Week Comments Yes 1 (1 standard drink = 0.6 oz pur e alcohol) [facility] Utilities Answer Date Recorded In the past 12 months has [employer], [employer], oil, or water [employer] threatened to shut off services in your [...] were you homeless or living in a longterm (including now)? No 12/03/2024 Comments Unknown Sex [...] on filedocumented in this encounter Care Teams Mergers And Acquisitions Associate Relationship Specialty Start Date End Date Jaxson Tian DO [address] [place], [place] [phone] PCP - General Internal Medicine 10/01/24 Addis Figueroa MD [address] [facility] [address] [place] [address] Physician Gynecology Oncology 10/30/24 Benedict Enrique MD [address] [place] [address] Obstetrics and Gynecology 10/30/24 documented as of this encounter
--- OUTSIDE RECORDS SUMMARY | 2025-07-16 18:21 | XMS_ITS | Clinical Summary ---
Author Organization [facility] Address [address] [place] [address] Care Team Providers Care Physician Representative Name Role Phone Unavailable Primary Care Provider Unavailabl e Social History Tobacco Use Types Packs/Day Years Used Date Smoking Tobacco: Never Assessed Comments Unknown Sex and Gender Information Value Date Recorded Sex Assigned at Not on file Legal Sex Female 9:25 PM EST Gender Identity Not on file Sexual Orientation Not on file Plan of Treatment Health Maintenance Due Date Last Done Comments Breast Cancer Screening 1969 DTaP,Tdap,and Td Vaccines (1 - Tdap) 1988 Hepatitis B Vaccines (1 of 3 - 19+ 3-dose series) 1988 Cervical Cancer Screening: P ap Smear 1990 Pneumococcal Vaccine: 50+ Ye ars (1 of 1 - PCV) 2019 Zoster Vaccines (1 of 2) 2019 Depression Screening 09/10/2024 COVID-19 Vaccine ( - 2023-2 5 season) 2025 Influenza Vaccine (#1) 2025 RSV Immunization Adult Patie nts (1 - 1-dose 75+ series) 2044 HIB Vaccines Aged Out No longer eligi ble based on patient's age to complete this topic HPV Vaccines Aged Out No longer eligi ble based on patient's age to complete this topic Hepatitis A Vaccines Aged Out No long er eligible based on patient's age to complete this topic IPV Vaccines Aged Out No longer eligi ble based on patient's age to complete this topic MMR Vaccines Aged Out No longer eligi ble based on patient's age to complete this topic Meningococcal ACWY Vaccine Aged Out N o longer eligible based on patient's age to complete this topic Meningococcal B Vaccine Aged Out No l onger eligible based on patient's age to complete this topic RSV Immunization Patients Un joshua 20 months Aged Out No longer eligible b ased on patient's age to complete this topic Varicella Vaccines Aged Out No longer eligible based on patient's age to complete this topic
--- OUTSIDE RECORDS SUMMARY | 2025-07-16 18:21 | XMS_ITS | Encounter Summary ---
Author Organization [facility] Address [address] [place] [address] Care Team Providers Care Health And Safety Tech Name Role Phone Jaxson Tian DO Primary Care Provider [phone] Addis Figueroa MD Unavailable Benedict Enrique MD Unavailable [phone] Encounter Details Date Type Department Care Team (Late st Contact Info) Description 12/24/2024 Scanned Document [facility] Division of Gynecologic Oncology in [address] [phone] Addis Figueroa MD [address] [address] Social History Tobacco Use Types Packs/Day Years Used Date Smoking Tobacco: Never Smokeless Tobacco: Never Alcohol Use Standard Drinks/Week Comments Yes 1 (1 standard drink = 0.6 oz pur e alcohol) [facility] Utilities Answer Date Recorded In the past 12 months has [employer], [employer], oil, or water [employer] threatened to shut off services in your [...] were you homeless or living in a snf (including now)? No 12/03/2024 Comments Unknown Sex [...] on filedocumented in this encounter Care Teams Health And Safety Tech Relationship Specialty Start Date End Date Jaxson Tian DO [address] [place], [place] [phone] PCP - General Internal Medicine 10/01/24 Addis Figueroa MD [address] [facility] [address] [place] [address] Physician Gynecology Oncology 10/30/24 Benedict Enrique MD [address] [place] [address] Obstetrics and Gynecology 10/30/24 documented as of this encounter
--- OUTSIDE RECORDS SUMMARY | 2025-07-16 18:21 | XMS_ITS | Encounter Summary ---
Author Organization [facility] Address [address] [place] [address] Care Team Providers Care Film Sound Engineer Name Role Phone Jaxson Tian DO Primary Care Provider [phone] Addis Figueroa MD Unavailable Benedict Enrique MD Unavailable [phone] Encounter Details Date Type Department Care Team (Late st Contact Info) Description 01/14/2025 Scanned Document [facility] Division of Gynecologic Oncology in [address] [phone] Addis Figueroa MD [address] [address] Social History Tobacco Use Types Packs/Day Years Used Date Smoking Tobacco: Never Smokeless Tobacco: Never Alcohol Use Standard Drinks/Week Comments Yes 1 (1 standard drink = 0.6 oz pur e alcohol) [facility] Utilities Answer Date Recorded In the past 12 months has [employer], [employer], oil, or water [employer] threatened to shut off services in your [...] were you homeless or living in a skilled nursing (including now)? No 12/03/2024 Comments Unknown Sex [...] on filedocumented in this encounter Care Teams Film Sound Engineer Relationship Specialty Start Date End Date Jaxson Tian DO [address] [place], [place] [phone] PCP - General Internal Medicine 10/01/24 Addis Figueroa MD [address] [facility] [address] [place] [address] Physician Gynecology Oncology 10/30/24 Benedict Enrique MD [address] [place] [address] Obstetrics and Gynecology 10/30/24 documented as of this encounter
--- OUTSIDE RECORDS SUMMARY | 2025-07-16 18:21 | XMS_ITS | Data Portability ---
Author Organization [place] - [facility]'s [facility], [facility] Address [id number] [place] [address] Care Team Providers Care Instructor [employer] Name Role Phone BAIRON WAGNER Primary Care Provider Assessment No assessment recorded. 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 20 2024 01:10P Simón John MD Not available Not available Not available Lab type + screen, serum - Pre-op for surgery at 2024 025 [facility], [address] [place] [address], [address] 09/18/2024 11:55:50 pap, IG + HPV 2023 024 [facility], [address] [place] [address], 08/06/2024 15:17:55 urinalys is, dipstick 2023 024 [email or web address] In-Office Order, Internal Use Only DO Not Attach Compendium DO Not Attach Compendium, Do Not Delete/merge, [id number] 07/30/2024 16:04:27 pap, IG + HPV 2022 023 [facility], [address] [place] [address], 08/03/2023 09:32:07 Referral None recorded . Procedures None recorded . Surgeries hysteros copic tissue removal (SURG) 2023 025 [email or web address] Not available 08/21/2024 14:11:59 Imaging US, transvag inal 2023 024 [email or web address] Not available 08/19/2024 15:06:45 MAMMO, screenin g, tomosynt hesis, bilatera l 2023 025 [facility] ([facility]) , [address], [place], [address], 12/12/2024 03:02:19 MAMMO, screenin g, tomosynt hesis, bilatera l [email or web address] [facility] (Centralized) , [address], [place], [address], 09/19/2024 08:07:10 Medication Orders estradio l 0.05 mg/24 hr semiweek ly transder mal patch [address] [facility], [address] [place], [address], 07/30/2024 08:46:23 progeste simona microniz ed 100 mg capsule [address] [facility], [address] [place], [address], 07/30/2024 08:46:21 estradio l 0.1 mg/24 hr semiweek ly transder mal patch [address]/Pharmacy #0838, [address] [place], [address], 07/30/2024 08:45:24 progeste simona microniz ed 200 mg capsule [address]/Pharmacy #0838, [address] [place], [address], 07/30/2024 08:45:28 Patient TargetsNo targets recorded. Patient Instructions Encounter Date Encounter Id Patient Instructions Last Modified By Organization Details Last Modified Time 07/26/2023 [id number] tips to help you stay healthy Not available 07/26/2023 15:23:25 07/30/2024 [id number] tips to help you stay healthy Not available 07/30/2024 08:46:19 Behavioral healt h screening completed and reviewed with patient. Negative findings. Not available 07/30/2024 08:33:27 Reason for Referral None Reported. Results Created Date Observation Date Name Description Value Unit Range Abnormal Flag Note LastModifiedBy Organization Detail LastModifiedTime 07/26/2007/26/2023 THINP REP PAP TEST (IMAG ER), HPV SCREE N, REFLE X HPV 16,18 /45 report Report abnormal Final Gynec ologi venkatesh Cytol ogy Repor t ----- ----- ----- ----- ----- ----- ----- ----- ----- ----- ----- ----- ThinP rep Pap Test, HPV Scree n, Refle x HPV Genot ype SPECI MEN ADEQU ACY: SATIS FACTO RY FOR EVALU ATION ; ENDOC ERVIC AL/TR ANSFO RMATI ON ZONE COMPO NENT PRESE NT. INTER PRETA TION: ENDOM ETRIA L CELLS PRESE NT. NEGAT FLOWER FOR SQUAM OUS INTRA EPITH ELIAL LESIO N Elect cruz Alvarado d: Nalini Doss [place] ([facility] [place] Elect cruz Alvarado d: Rafael Alvarez MD ----- ----- ----- ----- ----- ----- ----- ----- ----- ----- ----- ----- CLINI VENKATESH INFOR [place] N: LMP: NG Clini venkatesh Histo ry: PM Biops y Date: NG Speci men Sourc e: Cervi x, Endoc ervix Previ ous Pap Date: 07/19 HPV RESUL TS: HPV mRNA E6/E7 [id number] Appro lexii: 07/30 Negat flower REF RANGE : Negat flower CPT Codes : 01857 , 31437 ICD Codes : Z01.4 19 Not Available [facility] [address] [place], [address] 08/03/2023 09:32:07 07/26/20 23 07/26/2023 HPV MRNA E6/E7 HPV MRNA E6/E7 Negati ve negati ve APTIM A HPV assay detec ts 14 high risk HPV types (HPV 16,18 ,31,3 3,35, 39,45 ,51,5 2,56, 58,59 ,66,6 8). The assay is FDA appro lexii for testi ng ThinP rep liqui d Pap vials but not FDA appro lexii for detec ting HPV in SureP ath liqui d Pap speci mens. In-ho use valid ation has shown the assay can detec t all HPV types from this [facility] e Not Available [facility] [address] [place], [address] 08/03/2023 09:34:53 07/30/20 24 08/06/2024 THINP REP TIS PAP AND HPV MRNA E6/E7 WITH REFLE X TO HPV 16,18 /45 clinical information: normal None given Not Available [facility] [address], [address], 08/06/2024 15:17:54 07/30/2008/06/2024 THINP REP TIS PAP AND HPV MRNA E6/E7 WITH REFLE X TO HPV 16,18 /45 LMP: normal 07/21 Not Available [facility] [address], [address], 08/06/2024 15:17:54 07/30/20 24 08/06/2024 THINP REP TIS PAP AND HPV MRNA E6/E7 WITH REFLE X TO HPV 16,18 /45 prev. Pap: normal 07/26 Not Available [facility] [address], [address], 08/06/2024 15:17:54 07/30/20 24 08/06/2024 THINP REP TIS PAP AND HPV MRNA E6/E7 WITH REFLE X TO HPV 16,18 /45 prev. BX: normal NONE GIVEN Not Available [facility] [place] [facility] [address], [address], 08/06/2024 15:17:54 07/30/20 24 08/06/2024 THINP REP TIS PAP AND HPV MRNA E6/E7 WITH REFLE X TO HPV 16,18 /45 source: normal Cervi x, Endoc ervix Not Available [facility] [place] [facility] [address], [address], 08/06/2024 15:17:54 07/30/20 24 08/06/2024 THINP REP TIS PAP AND HPV MRNA E6/E7 WITH REFLE X TO HPV 16,18 /45 statement of adequacy: normal Satis facto ry for evalu ation . Endoc ervic al/tr ansfo rmati on zone compo nent prese nt. Not Available [facility] [place] [facility] [address], [address], 08/06/2024 15:17:54 07/30/20 24 08/06/2024 THINP REP TIS PAP AND HPV MRNA E6/E7 WITH REFLE X TO HPV 16,18 /45 interpretati on/result: normal Cytol ogy Resul ts: Negat flower for intra epith elial lesio n or malig resee . React flower cellu lar chase es assoc iated with infla mmati on (incl udes typic al repai r) Not Available [facility] [place] [facility] [address], [address], 08/06/2024 15:17:54 07/30/20 24 08/06/2024 THINP REP TIS PAP AND HPV MRNA E6/E7 WITH REFLE X TO HPV 16,18 /45 comment: normal This case could not be evalu ated with compu ter raman elroy techn ology . The slide was lakeisha brenner scree teresa accor ding to routi ne tricia smith . Not Available [address], [address], 08/06/2024 15:17:54 07/30/20 24 08/06/2024 THINP REP TIS PAP AND HPV MRNA E6/E7 WITH REFLE X TO HPV 16,18 /45 cytotechnolo gist: normal YP, CT( CP) CT scree reed locat ion: [facility] [address], [place] [address] Not Available [facility], [address], 08/06/2024 15:17:54 07/30/20 24 08/06/2024 THINP REP TIS PAP AND HPV MRNA E6/E7 WITH REFLE X TO HPV 16,18 /45 pathologist: normal Saver olivia silva M.D., (elec troni c signa ture) [facility] [phone] Not Available [address], [address], 08/06/2024 15:17:54 07/30/20 24 08/06/2024 THINP REP TIS PAP AND HPV MRNA E6/E7 WITH REFLE X TO HPV 16,18 /45 comment EXPLA NATOR Y NOTE: The Pap is a scree reed test for cervi venkatesh cance r. It is not a diagn ostic test and is subje ct to false negat flower and false posit flower resul ts. It is most relia ble when a satis facto ry sampl e, regul lacey obtai teresa, is submi tted with relev ant clini venkatesh findi ngs and histo ry, and when the Pap resul t is evalu ated along with histo terrie and curre nt clini venkatesh infor matio n. Not Available [facility], [place], [address], 08/06/2024 15:17:54 07/30/20 24 08/06/2024 THINP REP TIS PAP AND HPV MRNA E6/E7 WITH REFLE X TO HPV 16,18 /45 HPV MRNA E6/E7 Not Detect ed not detect ed normal Metho dolog y: Trans cript ion-M ediat ed Ampli ficat ion This assay detec ts E6/E7 viral messe nger RNA (mRNA ) from 14 high- risk HPV types (16,1 8,31, 33,35 ,39,4 5,51, 52,56 ,58,5 9,66, 68). Cervi venkatesh sourc es are requi red for HPV testi ng. If a vagin al sourc e from a patie nt who has had a total hyste recto my with remov al of cervi x was submi tted, pleas e conta ct the testi ng labor atory for alter nativ e testi ng optio ns. For addit ional infor gretchen luciano e refer to http: //[facility] penny robles.chema stdia gnost ics.c om/fa q/FAQ 129v1 (This link if provi ded for infor trenton robles/ anurag archuleta purpo ses only. ) Not Available [facility] [address], [address], 08/06/2024 15:17:54 07/30/20 24 07/30/2024 urina lysis , dipst ick Interpretati on positi ve Not Available In-Office Order Internal Use Only DO Not Attach Compendium DO Not Attach Compendium, Do Not Delete/merge, 07/30/2024 08:22:50 07/30/20 24 07/30/2024 urina lysis , dipst ick Blood Large: +3 Not Available In-Office Order Internal Use Only DO Not Attach Compendium DO Not Attach Compendium, Do Not Delete/merge, 07/30/2024 08:22:50 01/09/09/18/2024 TYPE AND SCREE N FOR HTFD REDIR ECTS TO HOSP EMILEE Type and Scree n [facility]. Not Available [facility] [address], [place], [address], 09/18/2024 11:55:50 08/19/20 24 08/19/2024 US, trans vagin al RAD [email or web address] Not Available 21:41:15 09/30/1909/30/2024 imagi ng/di agnos tic resul t No observ ation record ed. [email or web address] [facility] [id number] 09/30/2024 10:12:56 09/30/19 25 09/30/2024 elect radha diogr am, routi ne ECG, 12 leads min No observ ation record ed. [email or web address] [facility] [id number] 10/01/2024 08:42:22 Result Notes None recorded. Problems Name Problem SNOMED Code Status Onset Date Resolution Date Notes Provider Name and Address Organization Details Recorded Time Atypical glandula r cells on cervical Papanico laou smear 973586032 Completed 07/04/2021 YNES JOHN MD [address] [place] [address], [address] [place] [address] , [facility] 13:57:44 Endometr iosis of uterus 58225611 Active 2016 cervical endometr iosis YNES JOHN MD [address] [place] [address], [address] , [facility] 15:10:00 [facility] [id number] 9104 Active 2020 YNES JOHN MD [address] [place] [address], [address] , [facility] 13:57:57 Hypercho lesterol emia 48231935 Active 2020 YNES JOHN MD [address], [address] [place] [address] , [facility] 1 10:14:43 Human papillom a virus infectio n 715344902 Active 2021 YNES JOHN MD [address] [place] [address], [address] [place] [address] , [facility] 2 09:59:41 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 YNES JOHN MD [address] [place] [address], [address] [place] [address] , [facility] 3 11:27:28 Abnormal uterine bleeding 17885641015 100 Active 2023 YNES JOHN MD [address] [place] [address], [address] [place] [address] , [facility] 4 08:47:30 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 Will do gynecolo gic oncology referral . YNES JOHN MD [address] [place] [address], [address] [place] [address] , [facility] 5 17:41:25 Problem Notes None recorded. Procedures Surgical History Date Name Laterality Status Provider Name and Address Organization Details Recorded Time 10/01/19 25 Hysteroscopy completed YNES JOHN MD [address] [place] [address], [address] [place] [address], [facility] 10/01/2024 08:22:20 07/30/20 24 Date of Last Pap Smear completed Mehnaz Alejandro [facility] 07/30/2024 08:53:10 04/22/20 24 Date of [facility] 08:17:00 07/25/20 21 Endometrial Biopsy Procedure Note completed YNES JOHN MD [address] [facility] [place], [address], [facility] 07/25/2021 16:00:45 04/10/20 21 Date of Last Colonoscopy completed Richelle Nolandca [facility] 07/04/2021 08:54:43 01/10/20 17 L5J-BNQ completed Mehnaz [facility]old [facility] 01/09/2017 14:53:41 01/10/20 17 B8S-DST completed Mehnaz [facility] 01/09/2017 14:53:45 01/10/20 17 [id number]-[id number] completed Mehnaz [facility] 01/09/2017 14:53:42 01/10/20 17 T2X-HTHQNJ completed [facility] 01/09/2017 14:53:40 12/28/19 16 Colposcopy Procedure Note completed YNES JOHN MD [address] [facility], [address] [place] [address], [address], [facility] 01/01/2016 08:25:57 12/28/19 16 Endometrial Biopsy Procedure Note completed YNES JOHN MD [address] [facility] [place], [address], [facility] 01/01/2016 08:25:57 12/28/19 16 [facility] 12/28/2015 16:35:42 12/28/19 16 Colposcopy completed Not Available [facility] 07/19/2022 09:38:29 11/29/19 16 T1N-EEU completed YNES JOHN MD [address] [facility], [address] [place] [address], [address], [facility] 12/06/2015 20:42:36 11/29/19 16 V1D-HWTPSK completed YNES JOHN MD [address] [facility], [address], [place], [address], [facility] 12/06/2015 20:42:36 02/21/20 12 LEEP completed Not Available [facility] 07/19/2022 09:38:29 02/27/20 09 Colposcopy completed Not Available [facility] 07/19/2022 09:38:30 Imaging Results None recorded. Procedure Notes None recorded. Medical Equipment None Reported. Allergies Allergen ID Allergen Name Allergen Category Reaction Reaction Severity Criticality Documentation Date Start Date Code Code System Note Provider Name and Address Organization Details Recorded Time 603671 latex environme nt,medica tion Not available Not available Not available 11/16/2015 06271 91 RxNorm Mehnaz Javon null, [facility] 6 14:51:53 344950 Flagyl medicatio n Not available Not available Not available 11/16/201599822 6 RxNorm Mehnaz Javon null, [facility] 6 14:51:53 526420 tetracycl ine medicatio n Not available Not available Not available 11/16/2015 09431 RxNorm Mehnaz Javon null, [facility] 6 14:51:53 Medications Name Sig Start Date Stop Date Status Note LastModified by Organization Details LastModified Time atorvastati n 40 mg tablet TAKE 1 TABLET BY MOUTH EVERY DAY active Not Available Not Available No t Available ketoconazol e 2 % shampoo USE ON SCALP 3 TIMES A WEEK, LEAVE ON 3-5 MINUTES AND RINSE 07/19 completed Not Available Not Available Not Available estradiol 0.1 mg/24 hr semiweekly transdermal patch APPLY 1 PATCH TRANSDERM ALLY TWICE A WEEK 07/30 completed Not Available Not Available Not Available estradiol 0.05 mg/24 hr semiweekly transdermal patch Apply 1 patch twice a week by transderm al route. active Not Available Not Available No t Available progesteron e micronized 200 mg capsule TAKE 1 PILL ORALLY FIRST 12 DAYS OF EACH CALENDAR MONTH STARTING 202207/30 completed Not Available Not Available Not Available albuterol sulfate HFA 90 mcg/actuati on aerosol inhaler INHALE 2 PUFFS INTO THE LUNGS EVERY 6 HOURS FOR 30 DAYS 07/19 completed Not Available Not Available Not Available progesteron e micronized 100 mg capsule Take 1 capsule every day by oral route for 90 days. active Not Available Not Available No t Available multivitami n 01/09 completed Not Available Not Available Not Available Flucelvax Quad 7115-5728 (PF) 60 mcg (15 mcg x 4)/0.5 mL IM syringe 11/07 completed Not Available Not Available Not Available Flucelvax Quad (PF) 60 mcg (15 mcg x 4)/0.5 mL IM syringe 11/07 completed Not Available Not Available Not Available BinaxNOW COVID-19 Ag Card kit TEST DIRECTED 07/01 completed Not Available Not Available Not Available Paxlovid 300 mg (150 mg x 2)-100 mg tablets in a dose pack TAKE 2 TABS NIRMATREL VIR AND 1 TAB RITONAVIR BY MOUTH TWICE DAILY FOR 5 DAYS 07/27 completed Not Available Not Available Not Available Vitals Date Recorded Body height Body mass index (BMI) Body weight Systolic And Diastolic Provider Name and Address Organization Details Last Updated DateTime 09/18/2024 167.64 cm 31.5 kg/m2 15010.51 g 110/62 mm[Hg] [facility] 09/18/2024 10:14:45 Date Recorded Body height Body mass index (BMI) Body weight Systolic And Diastolic Provider Name and Address Organization Details Last Updated DateTime 06/13/2023 167.64 cm 31 kg/m2 03300.74 g 120/80 mm[Hg] Mehnaz Jerold [facility] 06/13/2023 09:50:29 Date Recorded Body height Body mass index (BMI) Body weight Systolic And Diastolic Provider Name and Address Organization Details Last Updated DateTime 07/26/2023 167.64 cm 31 kg/m2 48836.74 g 120/80 mm[Hg] Mehnaz Jerold [facility] 07/26/2023 14:56:38 Date Recorded Body height Body mass index (BMI) Body weight Systolic And Diastolic Provider Name and Address Organization Details Last Updated DateTime 07/30/2024 167.64 cm 31.6 kg/m2 93632.1 g 120/80 mm[Hg] Mehnaz Alejandro [facility] 07/30/2024 08:29:07 Date Recorded Body height Body mass index (BMI) Body weight Systolic And Diastolic Provider Name and Address Organization Details Last Updated DateTime 08/19/2024 167.64 cm 31.6 kg/m2 38632.1 g 188/78 mm[Hg] Indy Turner [facility] 08/19/2024 11:18:53 Social History Question Answer Notes LastModified by Organizat ion Details LastModified Time Tobacco Smoking Status Never Smoker Wilmar lin, [facility] 06/13/2023 09:34:15 Do You Have An Advance Directive? No [email or web address] Information not available 07/26/2023 Is Blood Transfusion Acceptable In An Emergency? No [email or web address] Information not available 07/26/2023 In The 14 Days Before Symptom Onset, Have You Had Close Contact With A Laboratory-confir med COVID-19 While That Case Was Ill? No Information not available 07/26/2023 In The 14 Days Before Symptom Onset, Have You Had Close Contact With A Person Who Is Under Investigation For COVID-19 While That Person Was Ill? No [email or web address] Information not available 07/26/2023 Have You Been To An Area Known To Be High Risk For COVID-19? No [email or web address] Information not available 07/26/2023 Do You Reside In Or Have You Traveled To An Area Where Ebola Virus Transmission Is Active? No [email or web address] Information not available 07/26/2023 What Is The Highest Grade Or Level Of School You Have Completed Or The Highest Degree You Have Received? [id number] [email or web address] Information not available 06/13/2023 Have There Been Any Changes To Your Family Or Social Situation? No [email or web address] Information no t available 07/26/2023 Have You Recently Or Are You Planning To Travel To An Area With Zika Virus? No Information not available 07/26/2023 Do You Have Any Children? Yes Information not available 01/09/2017 Does Your Partner Physically Hurt You Or Threaten To Hurt You? No Information not available 11/07/2018 Has Your Partner Forced You To Have Sex Or Perform Sex Acts When You Did Not Want To? No Information not available 11/07/2018 Does Your Partner Insult, Scream At Or Talk Down To You? No Information not available 11/07/2018 Does Your Partner Control You Or Any Part Of Your Life? No Information not available 11/07/2018 Are You Afraid Of Your Partner? No Information not available 11/07/2018 Drug Use? No Informat ion not available 01/09/2017 Do You Feel Safe At Home? Yes Information not available 01/09/2017 How Many Children Do You Have? 2 [email or web address] Information not available 06/13/2023 Do You Use Protection During Sex? No [email or web address] Information not available 06/13/2023 Do You Use Protection Against STDs? No Information not available 07/30/2024 Are You Sexually Active? Yes [email or web address] Information not available 06/13/2023 How Much Tobacco Do You Smoke? No Information not available 06/13/2023 Has Tobacco Cessation Counseling Been Provided? No Information not available 07/30/2024 How Many Years Have You Smoked Tobacco? 0 [email or web address] Information not available 07/26/2023 Have You Recently Traveled Abroad? Yes [email or web address] Information not available 08/19/2024 Do You Have Symptoms Associated With Zika Virus (fever, Rash, Joint Pain, Or Conjunctivitis)? No Information not available 07/26/2023 Do You Have Any Future Plans To Get ? No, I Don't Want To Become Information not available 07/30/2024 Sex: Unknown Functional Status Question Answer Note LastModified by Organizat ion Details LastModified Time What is your level of alcohol consumption? Occasional [email or web address] Information not available 06/13/2023 Are you currently employed? 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 Moderate [email or web address] Information not available 06/13/2023 Mental Status Question Answer Note LastModified by Organizat ion Details LastModified Time Do you feel stressed (tense, restless, nervous, or anxious, or unable to sleep at night)? [id number] [email or web address] Information not available 06/13/2023 Do you have difficulty concentrating, remembering or making decisions? No [email or web address] Information no t available 07/26/2023 Family History Relationship Description Onset Age of this Age Resolved Age Notes LastModified by Organization Details LastModified Time Mother Hyperlipidem ia [email or web address] [email or web address] Not available 11/29/2015 15:38:00 Mother Malignant melanoma Skin cancer , [email or web address] Not available 06/13/2023 08:52:43 Mother Malignant lymphoma [email or web address] Not available 07/30 08:09:23 Mother Alive age 2023 84 [email or web address] Not available 07/30/2024 08:27:48 Father Hypertensive disorder [email or web address] Not available 11/29/2015 15:38:00 Father Hyperlipidem ia [email or web address] daly Not available 11/29/2015 15:38:00 Father Father 84 brain tumor [email or web address] Not available 07/30/2024 08:09:23 Notes:No family hx breast ov amy or colon cancer Medical History Condition Response Other N *No Diseases or Conditions N Blood clots N Breast Cancer N Colon cancer N Benign breast disease N Depression N Lung Disease N Defects or Inherited Disease N Anesthesia Complications N BrCa gene tested? N Headaches/Migraines N Have you ever been on isolation N Anxiety Disorder N Arthritis N HSV N Infertility N Interstitial Cystitis N Abnormal pap Y Acid Reflux (GERD) N Cancer N Stroke N Endometriosis Y Fibromyalgia N Spina Bifida N HIV N Heart Problems N Sexual Dysfunction N Autoimmune disorder N Kidney or Bladder Problems N Thyroid Problems N GI Problems N Eating Disorder N Anemia N Multiple Sclerosis N Psychiatric Illness N Ovarian Cancer N Diabetes N Blood Transfusions N Bladder disease N History of MRSA N Abnormal Uterine Bleeding N Hyperlipidemia Y BrCa positive N Diverticulitis N Abuse/Domestic Violence N Asthma Y Hepatitis N Hypertension N Osteoporosis N Thrombophilias N Gynecological History Statement/Question Response Benign Breast Disease N Date of Last Mammogram 04/22/2024 Date of LMP 07/21/2024 Breast Biopsy N Cone Biopsy N Post Menopausal Bleeding N STIs/STDs N PID N Cervical Cancer N History of Endometrial Biopsy? N BrCa gene tested? N Ovarian Cancer N Date of Last Colonoscopy 04/10/2021 Breast Cancer N Bladder Problems N Abnormal Uterine Bleeding Y Last HPV Result Negative Abnormal Pap Yes BrCa Positive N Infertility N Breast Ultrasound N Leep Y Colposcopy 12/28/2015 HPV Vaccine N Endometriosis Y Current Control Method None Age at First Child 31 Fibroids N Uterine Cancer N Current Control Method None Mammogram Required? Y Sexually Active? Y Sexual Problems? N Date of Last Pap Smear 07/30/2024 Pap Required? Y Hormone Replacement Therapy Y Obstetrics History GPAL:G 3 P 2 0 1 2 Type Value Full Term 2 Spontaneous 1 Living 2 Total 3 Immunizations Vaccine Type Date Status Note Provider Nam e and Address Organization Details Recorded Time zoster recombinant 06/16/2020 completed Crystal Haresh null, [facility] 03/28/2023 11:01:51 zoster recombinant 08/24/2020 completed Crystal Haresh null, [facility] 03/28/2023 11:01:51 COVID-19, mRNA, LNP-S, PF, 100 mcg/0.5mL dose or 50 mcg/0.25mL dose 01/21/2022 completed Crystal Haresh null, [facility] 03/28/2023 11:01:51 COVID-19, mRNA, LNP-S, PF, 100 mcg/0.5mL dose or 50 mcg/0.25mL dose 08/11/2021 completed Crystal Haresh null, [facility] 03/28/2023 11:01:51 COVID-19, mRNA, LNP-S, PF, 30 mcg/0.3 mL dose 11/29/2020 completed Crystal Haresh null, [facility] 03/28/2023 11:01:51 COVID-19, mRNA, LNP-S, PF, 30 mcg/0.3 mL dose 12/20/2020 completed Crystal Haresh null, [place] - [facility] 03/28/2023 11:01:51 COVID-19, mRNA, LNP-S, bivalent, PF, 50 mcg/0.5 mL or 25mcg/0.25 mL dose 06/11/2022 completed Crystal Haresh null, [place] - [facility] 03/28/2023 11:01:51 Tdap 06/15/2020 completed Crystal Haresh null, [place] - [facility] 03/28/2023 11:01:51 Influenza, split virus, quadrivalent, PF 06/11/2022 completed Crystal Haresh null, [place] - [facility] 03/28/2023 11:01:51 Influenza, recombinant, trivalent, PF 06/17/2020 completed Crystal Haresh null, [facility] 03/28/2023 11:01:51 Past Encounters Encounter ID Performer Location Encounter Start Date Encounter Closed Date Diagnosis/Indication Diagnosis SNOMED-CT Code Diagnosis ICD10 Code Diagnosis IMO Codes Diagnosis Note [id number] YNES JOHN MD GAO[address],[facility] [address] [place] [address] 11/29/2015 15:11:10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
== END 2025-07-16 16:12 | disposition home or self-care (01) ==
LOC: HO.HMCFM 15:24
PROVIDERS: PCP Physician Assistant Medical; Visit Provider Physician Assistant Medical
DX: M76.62 Achilles tendinitis, left leg (principal); E78.00 Pure hypercholesterolemia, unspecified; B00.9 Herpesviral infection, unspecified; J45.20 Mild intermittent asthma, uncomplicated

== ENCOUNTER → 2025-07-16 15:24 | Outpatient (BNVA) | payer OTHER, SELFPAY | PROVIDERS: Visit Provider Physician Assistant Medical | DX: Z76.89 Persons encountering health services in other specified circumstances (principal); M76.62 Achilles tendinitis, left leg; E78.00 Pure hypercholesterolemia, unspecified; B00.9 Herpesviral infection, unspecified; J45.20 Mild intermittent asthma, uncomplicated; Z79.899 Other long term (current) drug therapy; Z13.31 Encounter for screening for depression; Z13.39 Encounter for screening examination for other mental health and behavioral disorders | CPT/HCPCS: 96127 ==